=== PATIENT | female | born 1955 | race Caucasian/White ===

== ENCOUNTER 2017-05-11 16:32 | Emergency (ER) | payer OTHER ==
[~2017-05-11] VITALS: Ht 157.5 cm; Wt 41.5 kg
[~2017-05-11 16:32] MED LIST: AMBI10TA PO; LOMO PO; METH750T2 PO; PRED20 PO; TRAM50 PO; XANA1TAB6 PO; ZITH250T PO
[2017-05-11 16:34] VITALS: BP 103/58; PULSE 109; RESP 20; TEMP 98.8; O2SAT 88
--- NOTE | 2017-05-11 17:13 | PD ---
Physical Exam Date Seen by Provider: May 11, 2017 Time Seen by Provider: 17:11 Narrative 61-year-old white female presents to emergency department requesting evaluation of possible pneumonia. She states that she has had pneumonia several times and is normally treated at [facility]. She states that she's been sick now for the last 2 days. This has consisted of cough, congestion and colored sputum. Vital signs reviewed. Pt waiting for bed placement. Data Data Last Documented VS Vital Signs Date Time Temp Pulse Resp B/P (MAP) Pulse Ox O2 Delivery O2 Flow Rate FiO2 05/11/17 16:34 98.8 109 20 103/58 (73) 88 Room Air [facility] Medical Record Reviewed: No Supervised Visit with NITISH: Zafar Nieto May 11, 2017 17:13
== END 2017-05-11 18:20 | disposition left against medical advice (07) ==
LOC: NED 16:32
DX: R05 Cough (principal)
CPT/HCPCS: 99281

== ENCOUNTER 2018-05-27 10:21 | Inpatient (IN) ==
[2018-05-27] MEDS ORDERED: MethylPREDNISolone Sod Succinate Inj 125 MG/2 ML Vial IV.PUSH ONE (10:57)
--- NOTE | 2018-05-27 11:47 | XR ---
EXAM DATE: 05/27/2018 11:44 AM EST AGE/SEX: 62 years / Female INDICATIONS: Weakness and shortness of breath. CLINICAL DATA: This is the patient's initial encounter. Patient reports that signs and symptoms have been present for 1 day and indicates a pain score of Nonresponsive. MEDICAL/SURGICAL HISTORY: Chronic obstructive pulmonary disease. Emphysema. None. COMPARISON: [facility], CHEST SINGLE AP, 09/14/2015. . FINDINGS: The cardiac and mediastinal contours are within normal limits. There are COPD changes. No acute abnor mality is identified. The study is stable compared to previous dated 09/14/2015. The visualized bony structures are grossly intact. CONCLUSION: Chronic appearing interstitial changes and hyperinflation suggesting COPD. Electronically signed by: John Taylor MD 05/27/2018 11:45 AM EST
[2018-05-27 11:53] LABS: Baso % (Auto) 0.7 % (0.0-2.0); Eos % (Auto) 0.5 % (0.0-4.0); Hematocrit 48.4 % (35.0-46.0); Hemoglobin 15.8 gm/dL (11.6-15.3); Lymph # (Auto) 1.6 th/mm3 (1.0-4.8); Lymph % (Auto) 26.7 % (9.0-44.0); Mean Corpuscular HGB Conc 32.5 % (32.0-36.0); Mean Corpuscular Volume 92.2 fL (80.0-100.0); Mean Platelet Volume 8.6 fL (7.0-11.0); Mono # (Auto) 0.6 th/mm3 (0.0-0.9); Neut # (Auto) 3.8 th/mm3 (1.8-7.7); Neut % (Auto) 62.1 % (16.0-70.0); Platelet Count 161 th/mm3 (150-450); Red Blood Count 5.25 mil/mm3 (4.00-5.30); Red Cell Distribution Width 14.6 % (11.6-17.2); White Blood Count 6.1 th/mm3 (4.0-11.0)
[2018-05-27 12:09] LABS: ABG Base Excess 12.6 mmol/L (-2-2); ABG PCO2 101 mmHg (38-42); ABG PO2 288 mmHg (61-120)
[2018-05-27] MEDS ORDERED: Ketorolac Inj 30 MG/ML (IVP) Vial IV.PUSH ONE (12:14)
[2018-05-27 12:15] LABS: Alanine Aminotransferase 13 U/L (10-53); Albumin 3.4 g/dL (3.4-5.0); Anion Gap 4 meq/L (5-15); Aspartate Aminotransferase 17 U/L (15-37); Blood Urea Nitrogen 6 mg/dL (7-18); Calcium 8.3 mg/dL (8.5-10.1); Carbon Dioxide 39.3 meq/L (21.0-32.0); Chloride 97 meq/L (98-107); Glomerular Filtration Rate Greater Than 89 mL/min (>89); Glucose,Random 109 mg/dL (74-106); Magnesium 1.8 mg/dL (1.5-2.5); Potassium 3.5 meq/L (3.5-5.1); Sodium 140 meq/L (136-145)
--- NOTE | 2018-05-27 12:17 | ED ---
HPI General Chief Complaint: Shortness of Breath/Dyspnea Stated Complaint: GEN WEAKNESS Time Seen by Provider: 05/27/18 10:57 Source: patient and family Mode of arrival: wheelchair Limitations: other (clinical condition) History of Present Illness The patient is a 62-year-old female daily smoker with severe COPD that supposed to be on home O2 at 2 L 24 7 however is noncompliant was brought in respiratory distress by family. MD Complaint: Reports shortness of breath, cough and anxiety Onset (ago): day(s) (3) Context: Denies recent illness Severity: severe Relieving factors: oxygen Exacerbating factors: exertion Known history of: Reports COPD Associated symptoms: Reports cough, wheezing, sputum production and palpitations ; Denies fever, hemoptysis, diaphoresis, nausea/vomiting, syncope and chest congestion Treatment prior to arrival: Reports none Related Data Home oxygen amount: 2 liters (supposed to be but is not compliant) Home Medications Medication Instructions Recorded Confirmed albuterol sulfate 2.5 mg INHALATION Q4H PRN 05/27/18 05/27/18 albuterol sulfate [ProAir HFA] 1 puff INHALATION Q4-6H PRN 05/27/18 05/27/18 alprazolam 1 mg PO BID 05/27/18 05/27/18 fluticasone [Flovent HFA] 1 inh INHALATION Q12H 05/27/18 05/27/18 tramadol 50 mg PO Q4-6H PRN 05/27/18 05/27/18 zolpidem 5 mg PO HS 05/27/18 05/27/18 Allergies Allergy/AdvReac Type Severity Reaction Status Date / Time meperidine Allergy Severe Nausea/Vomi Verified 05/27/18 11:20 ting acetaminophen Allergy Intermediate Nausea/Vomi Verified 05/27/18 11:20 ting propoxyphene Allergy Intermediate Nausea/Vomi Verified 05/27/18 11:20 ting Review of Systems ROS: all other systems reviewed are negative [facility] Medical History Medical History Anxiety (Acute) COPD (chronic obstructive pulmonary disease) (Acute) Social History Social History Substance History: No History of Abuse Second Hand Smoke Exposure: Yes Smoking Status: Current every day smoker Tobacco Type: Cigarettes How Often Do You Have a Drink Containing Alcohol: Never Recent Travel in [facility] within the Last 8 Weeks: No Recent Out of Country Travel within the Last 8 Weeks: No Immunization History Tetanus Immunization: Unsure Exam Narrative Exam Narrative: GENERAL: Alert and oriented in respiratory distress. Cachectic SKIN: Focused skin assessment warm/dry. HEAD: Atraumatic. Normocephalic. EYES: Pupils equal and round. No scleral icterus. No injection or drainage. ENT: No nasal bleeding or discharge. Mucous membranes pink and moist. NECK: Trachea midline. No JVD. CARDIOVASCULAR: Tachycardia with regular rhythm. No murmur appreciated. RESPIRATORY: use of accessory muscles. bilateral inspiratory expiratory wheezes. Tachypnea. Diminished sounds bilateral lower base GASTROINTESTINAL: Abdomen soft, non-tender, nondistended. Hepatic and splenic margins not palpable. MUSCULOSKELETAL: No obvious deformities. No clubbing. No cyanosis. No edema. NEUROLOGICAL: Awake and alert. No obvious cranial nerve deficits. Motor grossly within normal limits. Normal speech. PSYCHIATRIC: Appropriate mood and affect; insight and judgment normal. Procedures Intubation Time Out Performed: Yes Sedative: etomidate Mg Given: 20 Paralytic: succinylcholine Mg Given: 100 Laryngoscope: fiber optic video scope ET Tube Size: 8 ET Tube Uncuffed: Yes Tube Secured Depth (cm): 22 Tube Secured Location: lips Tube Placement Confirmation: visualized tube passing through cords, equal breath sounds bilaterally and confirmation by capnometry Patient Tolerated Procedure: well Intubation Complications: none Course Reevaluation(s) Reevaluation #1: Patient was placed on BiPAP O2 saturation has improved and states that she feels a little better. Respiratory effort has decreased and she received a nebulizer treatment through the BiPAP Time: 11:30 Reevaluation #2: BG's revealed respiratory acidosis with a PCO2 of 101 and a pH of 7.224 and PO2 of 288. We will place the patient on BiPAP to assist with ventilation. No signs of pneumonia on imaging. Patient hypercapnia did not improve on BiPAP she actually started becoming more altered and was Time: 12:17 Reevaluation #3: No major improvement on repeat ABGs PCO2 is 95 after she was on BiPAP for over an hour patient is becoming more lethargic decision was made to intubate due to respiratory acidosis and hypercapnia and beginning of altered mental status. Time: 13:59 Initial Documented Vital Signs Temperature 98.3 F 05/27/18 10:46 Pulse Rate 100 H 05/27/18 10:46 Respiratory Rate 42 H 05/27/18 10:46 Blood Pressure 135/77 05/27/18 10:46 Pulse Oximetry 50 L 05/27/18 10:46 Last Documented Vital Signs Temperature 98.3 F 05/27/18 10:46 Pulse Rate 73 05/27/18 16:56 Respiratory Rate 18 05/27/18 16:56 Blood Pressure 99/65 L 05/27/18 16:23 Pulse Oximetry 99 05/27/18 16:52 Critical Care Time Critical Care Time: Yes Total Critical Care Time: 30 Attestation: Aggregate critical care time was 30 minutes. Time to perform other separately billable procedures was not included in the critical care time. My time did not include minutes spent treating any other patients simultaneously or on activities that did not directly contribute to the patient's treatment. The services I provided to this patient were to treat and/or prevent clinically significant deterioration that could result in: I provided critical care services requiring my management, as noted below: Chart data review, documentation time, medication orders and management, vital sign assessments/reviewing monitor data, ordering and reviewing lab tests, ordering and interpreting/reviewing x-rays and diagnostic studies, care of the patient and discussion of the patient with the admitting physicians. Medical Decision Making MDM Narrative Medical decision making narrative: Patient in respiratory failure with respiratory acidosis and hypercapnia. Did not improve on BiPAP was intubated and admitted to the ICU. Serologies were negative for influenza there is no signs of pneumonia on chest x-ray and EKG troponin and WBCs were unremarkable. Medical Screen Exam Complete: Yes Emergency Medical Condition: Yes Lab Data Result diagrams: 05/27/18 11:04 05/27/18 11:04 Lab Results 05/27/18 05/27/18 05/27/18 Range/Units 11:04 11:04 11:58 WBC 6.1 (4.0-11.0) th/mm3 RBC 5.25 (4.00-5.30) mil/mm3 Hgb 15.8 H (11.6-15.3) gm/dL Hct 48.4 H (35.0-46.0) % MCV 92.2 (80.0-100.0) fL MCH 30.0 (27.0-34.0) pg MCHC 32.5 (32.0-36.0) % RDW 14.6 (11.6-17.2) % Plt Count 161 (150-450) th/mm3 MPV 8.6 (7.0-11.0) fL Neut % (Auto) 62.1 (16.0-70.0) % Lymph % (Auto) 26.7 (9.0-44.0) % [place] % (Auto) 10.0 H (0.0-8.0) % Eos % (Auto) 0.5 (0.0-4.0) % Baso % (Auto) 0.7 (0.0-2.0) % Neut # (Auto) 3.8 (1.8-7.7) th/mm3 Lymph # (Auto) 1.6 (1.0-4.8) th/mm3 [place] # (Auto) 0.6 (0.0-0.9) th/mm3 Eos # (Auto) 0.0 (0.0-0.4) th/mm3 Baso # (Auto) 0.0 (0.0-0.2) th/mm3 WBC Differential . Differential Comment Auto diff final Puncture Site Left radial Patient Temperature 98.6 O2 Saturation 97 (90-100) % ABG pH 7.22 L* (7.380-7.420) ABG pCO2 101 H* (38-42) mmHg ABG pO2 288 H (61-120) mmHg ABG HCO3 40 H (22-26) mmol/L ABG O2 Content 22.5 H (12.0-20.0) Vol % ABG Base Excess 12.6 H (-2-2) mmol/L ABG Methemoglobin 0.7 (0-2) % Gus Test Present Hemoglobin 16.0 (12.0-16.0) G/DL Carboxyhemoglobin 1.7 (0-4) % O2 Delivery Device Non-rebreathing mask Liter Flow 15.00 L/M Vent Setting Inspired O2 100 % Critical Value Yes Sodium 140 (136-145) meq/L Potassium 3.5 (3.5-5.1) meq/L Chloride 97 L (98-107) meq/L Carbon Dioxide 39.3 H (21.0-32.0) meq/L Anion Gap 4 L (5-15) meq/L BUN 6 L (7-18) mg/dL Creatinine 0.59 (0.50-1.00) mg/dL Estimated GFR Greater than 89 (>89) mL/min Random Glucose 109 H (74-106) mg/dL Calcium 8.3 L (8.5-10.1) mg/dL Magnesium 1.8 (1.5-2.5) mg/dL Total Bilirubin 0.2 (0.2-1.0) mg/dL AST 17 (15-37) U/L ALT 13 (10-53) U/L Alkaline Phosphatase 87 (45-117) U/L Total Creatine Kinase 51 (26-192) U/L Troponin I Less than 0.02 L (0.02-0.05) ng/mL Total Protein 7.1 (6.4-8.2) g/dL Albumin 3.4 (3.4-5.0) g/dL 05/27/18 Range/Units 13:43 WBC (4.0-11.0) th/mm3 RBC (4.00-5.30) mil/mm3 Hgb (11.6-15.3) gm/dL Hct (35.0-46.0) % MCV (80.0-100.0) fL MCH (27.0-34.0) pg MCHC (32.0-36.0) % RDW (11.6-17.2) % Plt Count (150-450) th/mm3 MPV (7.0-11.0) fL Neut % (Auto) (16.0-70.0) % Lymph % (Auto) (9.0-44.0) % [place] % (Auto) (0.0-8.0) % Eos % (Auto) (0.0-4.0) % Baso % (Auto) (0.0-2.0) % Neut # (Auto) (1.8-7.7) th/mm3 Lymph # (Auto) (1.0-4.8) th/mm3 [place] # (Auto) (0.0-0.9) th/mm3 Eos # (Auto) (0.0-0.4) th/mm3 Baso # (Auto) (0.0-0.2) th/mm3 WBC Differential Differential Comment Puncture Site Left radial Patient Temperature 98.6 O2 Saturation 90 (90-100) % ABG pH 7.25 L* (7.380-7.420) ABG pCO2 95 H* (38-42) mmHg ABG pO2 76 (61-120) mmHg ABG HCO3 40 H (22-26) mmol/L ABG O2 Content 20.0 (12.0-20.0) Vol % ABG Base Excess 12.4 H (-2-2) mmol/L ABG Methemoglobin 0.5 (0-2) % Gus Test Present Hemoglobin 15.8 (12.0-16.0) G/DL Carboxyhemoglobin 1.7 (0-4) % O2 Delivery Device Bipap Liter Flow L/M Vent Setting See comments Inspired O2 40 % Critical Value Yes Sodium (136-145) meq/L Potassium (3.5-5.1) meq/L Chloride (98-107) meq/L Carbon Dioxide (21.0-32.0) meq/L Anion Gap (5-15) meq/L BUN (7-18) mg/dL Creatinine (0.50-1.00) mg/dL Estimated GFR (>89) mL/min Random Glucose (74-106) mg/dL Calcium (8.5-10.1) mg/dL Magnesium (1.5-2.5) mg/dL Total Bilirubin (0.2-1.0) mg/dL AST (15-37) U/L ALT (10-53) U/L Alkaline Phosphatase (45-117) U/L Total Creatine Kinase (26-192) U/L Troponin I (0.02-0.05) ng/mL Total Protein (6.4-8.2) g/dL Albumin (3.4-5.0) g/dL Imaging Data Radiologist's impression: Chest X-Ray 05/27/18 10:58 CONCLUSION: Chronic appearing interstitial changes and hyperinflation suggesting COPD. Chest X-Ray 05/27/18 14:11 CONCLUSION: COPD changes. ET tube in good position. Discharge Plan Discharge Disposition Patient Disposition: 30 Still Patient Discharge Condition Condition: Critical Discharge Details Diagnosis: Respiratory failure with hypercapnia, Respiratory failure requiring intubation Physicians Team ED Provider: Rene Okeefe Primary Care Provider: UNKNOWN, Attending Provider: Tameka Camarena Discharge Interventions Interventions: ED Discharge Assessment Last Done: 05/27/18 17:00 Vital Signs Last Done: 05/27/18 15:00 Status ED Status: Left Department Discharge Information Discharge Date/Time: 05/27/18 17:01
[2018-05-27 12:19] LABS: Alkaline Phosphatase 87 U/L (45-117); Total Protein 7.1 g/dL (6.4-8.2)
[2018-05-27 12:21] LABS: Creatine Kinase 51 U/L (26-192)
[2018-05-27] MEDS ORDERED: Naloxone Inj 0.4 MG/ML Vial IV.PUSH ONE (13:39)
[2018-05-27] MEDS ORDERED: Naloxone Inj 0.4 MG/ML Vial ONE (13:40)
[2018-05-27 13:52] LABS: ABG Base Excess 12.4 mmol/L (-2-2); ABG PCO2 95 mmHg (38-42); ABG PO2 76 mmHg (61-120)
[2018-05-27] MEDS ORDERED: Succinylcholine Inj 200 MG/10 ML Vial IV.PUSH ONE (13:58)
[2018-05-27] MEDS ORDERED: Etomidate Inj 20 MG/10 ML Ampul IV.PUSH ONE (13:58)
--- NOTE | 2018-05-27 13:59 | ED ---
HPI General Chief Complaint: Shortness of Breath/Dyspnea Stated Complaint: GEN WEAKNESS Time Seen by Provider: 05/27/18 10:57 Related Data Allergies Allergy/AdvReac Type Severity Reaction Status Date / Time meperidine Allergy Severe Nausea/Vomi Verified 05/27/18 11:20 ting acetaminophen Allergy Intermediate Nausea/Vomi Verified 05/27/18 11:20 ting propoxyphene Allergy Intermediate Nausea/Vomi Verified 05/27/18 11:20 ting PMFSH Medical History Medical History Anxiety (Acute) COPD (chronic obstructive pulmonary disease) (Acute) Social History Social History Substance History: No History of Abuse Second Hand Smoke Exposure: Yes Smoking Status: Current every day smoker Tobacco Type: Cigarettes How Often Do You Have a Drink Containing Alcohol: Never Recent Travel in [facility] within the Last 8 Weeks: No Recent Out of Country Travel within the Last 8 Weeks: No Immunization History Tetanus Immunization: Unsure Course Reevaluation(s) Reevaluation #3: She does not seem to be improving on repeat ABGs. Her PCO2 is 95 after she was on BiPAP for about an hour's becoming more lethargic decision was made with daughter at bedside to intubate the patient. Her daughter is at bedside aware of condition. Time: 13:59 Initial Documented Vital Signs Temperature 98.3 F 05/27/18 10:46 Pulse Rate 100 H 05/27/18 10:46 Respiratory Rate 42 H 05/27/18 10:46 Blood Pressure 135/77 05/27/18 10:46 Pulse Oximetry 50 L 05/27/18 10:46 Last Documented Vital Signs Temperature 98.3 F 05/27/18 10:46 Pulse Rate 88 05/27/18 13:00 Respiratory Rate 16 05/27/18 13:00 Blood Pressure 111/69 05/27/18 13:00 Pulse Oximetry 96 05/27/18 13:00 Medical Decision Making Lab Data Result diagrams: 05/27/18 11:04 05/27/18 11:04 Lab Results 05/27/18 05/27/18 05/27/18 Range/Units 11:04 11:04 11:58 WBC 6.1 (4.0-11.0) th/mm3 RBC 5.25 (4.00-5.30) mil/mm3 Hgb 15.8 H (11.6-15.3) gm/dL Hct 48.4 H (35.0-46.0) % MCV 92.2 (80.0-100.0) fL MCH 30.0 (27.0-34.0) pg MCHC 32.5 (32.0-36.0) % RDW 14.6 (11.6-17.2) % Plt Count 161 (150-450) th/mm3 MPV 8.6 (7.0-11.0) fL Neut % (Auto) 62.1 (16.0-70.0) % Lymph % (Auto) 26.7 (9.0-44.0) % [place] % (Auto) 10.0 H (0.0-8.0) % Eos % (Auto) 0.5 (0.0-4.0) % Baso % (Auto) 0.7 (0.0-2.0) % Neut # (Auto) 3.8 (1.8-7.7) th/mm3 Lymph # (Auto) 1.6 (1.0-4.8) th/mm3 [place] # (Auto) 0.6 (0.0-0.9) th/mm3 Eos # (Auto) 0.0 (0.0-0.4) th/mm3 Baso # (Auto) 0.0 (0.0-0.2) th/mm3 WBC Differential . Differential Comment Auto diff final Puncture Site Left radial Patient Temperature 98.6 O2 Saturation 97 (90-100) % ABG pH 7.22 L* (7.380-7.420) ABG pCO2 101 H* (38-42) mmHg ABG pO2 288 H (61-120) mmHg ABG HCO3 40 H (22-26) mmol/L ABG O2 Content 22.5 H (12.0-20.0) Vol % ABG Base Excess 12.6 H (-2-2) mmol/L ABG Methemoglobin 0.7 (0-2) % Gus Test Present Hemoglobin 16.0 (12.0-16.0) G/DL Carboxyhemoglobin 1.7 (0-4) % O2 Delivery Device Non-rebreathing mask Liter Flow 15.00 L/M Vent Setting Inspired O2 100 % Critical Value Yes Sodium 140 (136-145) meq/L Potassium 3.5 (3.5-5.1) meq/L Chloride 97 L (98-107) meq/L Carbon Dioxide 39.3 H (21.0-32.0) meq/L Anion Gap 4 L (5-15) meq/L BUN 6 L (7-18) mg/dL Creatinine 0.59 (0.50-1.00) mg/dL Estimated GFR Greater than 89 (>89) mL/min Random Glucose 109 H (74-106) mg/dL Calcium 8.3 L (8.5-10.1) mg/dL Magnesium 1.8 (1.5-2.5) mg/dL Total Bilirubin 0.2 (0.2-1.0) mg/dL AST 17 (15-37) U/L ALT 13 (10-53) U/L Alkaline Phosphatase 87 (45-117) U/L Total Creatine Kinase 51 (26-192) U/L Troponin I Less than 0.02 L (0.02-0.05) ng/mL Total Protein 7.1 (6.4-8.2) g/dL Albumin 3.4 (3.4-5.0) g/dL 05/27/18 Range/Units 13:43 WBC (4.0-11.0) th/mm3 RBC (4.00-5.30) mil/mm3 Hgb (11.6-15.3) gm/dL Hct (35.0-46.0) % MCV (80.0-100.0) fL MCH (27.0-34.0) pg MCHC (32.0-36.0) % RDW (11.6-17.2) % Plt Count (150-450) th/mm3 MPV (7.0-11.0) fL Neut % (Auto) (16.0-70.0) % Lymph % (Auto) (9.0-44.0) % [place] % (Auto) (0.0-8.0) % Eos % (Auto) (0.0-4.0) % Baso % (Auto) (0.0-2.0) % Neut # (Auto) (1.8-7.7) th/mm3 Lymph # (Auto) (1.0-4.8) th/mm3 [place] # (Auto) (0.0-0.9) th/mm3 Eos # (Auto) (0.0-0.4) th/mm3 Baso # (Auto) (0.0-0.2) th/mm3 WBC Differential Differential Comment Puncture Site Left radial Patient Temperature 98.6 O2 Saturation 90 (90-100) % ABG pH 7.25 L* (7.380-7.420) ABG pCO2 95 H* (38-42) mmHg ABG pO2 76 (61-120) mmHg ABG HCO3 40 H (22-26) mmol/L ABG O2 Content 20.0 (12.0-20.0) Vol % ABG Base Excess 12.4 H (-2-2) mmol/L ABG Methemoglobin 0.5 (0-2) % Gus Test Present Hemoglobin 15.8 (12.0-16.0) G/DL Carboxyhemoglobin 1.7 (0-4) % O2 Delivery Device Bipap Liter Flow L/M Vent Setting See comments Inspired O2 40 % Critical Value Yes Sodium (136-145) meq/L Potassium (3.5-5.1) meq/L Chloride (98-107) meq/L Carbon Dioxide (21.0-32.0) meq/L Anion Gap (5-15) meq/L BUN (7-18) mg/dL Creatinine (0.50-1.00) mg/dL Estimated GFR (>89) mL/min Random Glucose (74-106) mg/dL Calcium (8.5-10.1) mg/dL Magnesium (1.5-2.5) mg/dL Total Bilirubin (0.2-1.0) mg/dL AST (15-37) U/L ALT (10-53) U/L Alkaline Phosphatase (45-117) U/L Total Creatine Kinase (26-192) U/L Troponin I (0.02-0.05) ng/mL Total Protein (6.4-8.2) g/dL Albumin (3.4-5.0) g/dL Imaging Data Radiologist's impression: Chest X-Ray 05/27/18 10:58 CONCLUSION: Chronic appearing interstitial changes and hyperinflation suggesting COPD. Discharge Plan Physicians Team ED Provider: Rene Okeefe Primary Care Provider: UNKNOWN, Status ED Status: Pending Admission
[2018-05-27] MEDS ORDERED: Sod Chloride 0.9% Inj 1,000 ML IV.SIG ONE (14:12)
[2018-05-27] MEDS ORDERED: Magnesium Oxide 400 MG Tablet PO PRN (14:17)
[2018-05-27] MEDS ORDERED: Magnesium Sulfate Inj 4 GM in Sodium Chlor 0.9% Inj 92 ML IV.SIG PRN (14:17)
[2018-05-27] MEDS ORDERED: Potassium Phosphate Inj 30 MMOL in Sodium Chlor 0.9% Inj 250 ML IV.SIG PRN (14:17)
[2018-05-27] MEDS ORDERED: Sodium Phosphate Inj 30 MMOL in Sodium Chlor 0.9% Inj 250 ML IV.SIG PRN (14:17)
[2018-05-27] MEDS ORDERED: Potassium Chlor 20 mEq Premix 20 MEQ/100 ML PIGGYBACK IV.SIG PRN ×2 (14:17)
[2018-05-27] MEDS ORDERED: Bisacodyl 10 MG Supp RECTAL PRN (14:17)
[2018-05-27] MEDS ORDERED: Potassium Chloride 25 MEQ Effervescent Tablet PO PRN (14:17)
[2018-05-27] MEDS ORDERED: Magnesium Sulfate Inj 2 GM in Sodium Chlor 0.9% Inj 96 ML IV.SIG PRN (14:17)
[2018-05-27] MEDS ORDERED: Potassium Chlor 40 mEq Premix 40 MEQ/100 ML PIGGYBACK IV.SIG PRN ×2 (14:17)
[2018-05-27] MEDS ORDERED: Potassium Phosphate 500 MG Soluble Tablet PO PRN ×2 (14:17)
[2018-05-27] MEDS: Propofol 1000 mg/100 ml Inj 1,000 MG/100 ML BOTTLE IV.CONT PRN ×2 (14:31→20:24)
--- NOTE | 2018-05-27 14:39 | XR ---
EXAM DATE: 05/27/2018 2:36 PM EST AGE/SEX: 62 years / Female INDICATIONS: Post ET tube placement. CLINICAL DATA: This is the patient's subsequent encounter. Patient reports that signs and symptoms h ave been present for 1 day and indicates a pain score of Nonresponsive. MEDICAL/SURGICAL HISTORY: . Chronic obstructive pulmonary disease. Emphysema. None. COMPARISON: [facility] 1[place] SINGLE [place], 05/27/2018. . FINDINGS: The endotracheal tubes in good position. The heart is normal in size. The mediastinal contours are within normal limits. The pulmonary parenchyma demonstrates advanced COPD changes. The visualized bony structures are grossly intact. CONCLUSION: COPD changes. ET tube in good position. Electronically signed by: John Taylor MD 05/27/2018 2:37 PM EST
[2018-05-27] MEDS: Sod Chloride 0.9% Inj 1,000 ML IV.CONT SCH (15:32)
[2018-05-27] MEDS: Heparin - SQ 10,000 UNITS/ML Vial SQ SCH (15:39)
[2018-05-27] MEDS ORDERED: Magnesium Sulfate Inj 2 GM in Sodium Chlor 0.9% Inj 96 ML IV.SIG ONE (16:00)
[2018-05-27] MEDS: fentaNYL 10 mcg/mL Premix Drip 2,500 MCG/250 ML BAG IV.SIG PRN (17:23)
[2018-05-27] MEDS: Oral Hygiene Kit OROPHARYNG SCH (17:24)
[2018-05-27 17:38] LABS: ABG Base Excess 6.6 mmol/L (-2-2); ABG PCO2 41 mmHg (38-42); ABG PO2 105 mmHG (61-120)
--- NOTE | 2018-05-27 18:10 | P.HPCC ---
History of Present Illness Service: [facility] [place] Primary Care Physician: UNKNOWN Chief Complaint: Shortness of breath, somnolence History of Present Illness: 62yF presenting to the ED today with shortness of breath and cough. The patient' s daughter states that the patient has a history of severe COPD, is supposed to be using 2L O2 NC around the clock but doesn't, and has been complained of feeling "winded" and coughing for the past week. The patient does not like coming to hospitals or seeing doctors but her daughter convinced her to come this morning when she was complaining of feeling "sleepy". The patient was noted to be difficult to arouse in the ED, was given Narcan x 1 dose and placed on bipap. Her initial ABG showed a pCO2 of 101 which only improved to 95 after an hour and a half on bipap. The patient was intubated by the ED physician prior to my evaluation, and I obtained details of the HPI from her daughter at the bedside. COPD on nebs at home, daughter does not think that the patient takes chronic or frequent steroids but says that she has required ICU admission/ intubation several times in the past, still smokes, frequently non-compliant with home O2. Inpatient Certification: I certify that the inpatient services were ordered in accordance with Medicare regulations governing the order. This includes certification that hospital inpatient services are reasonable and necessary and in the case of services not specified as inpatient-only under 42 CFR 419.22(n), that they are appropriately provided as inpatient services in accordance to with the 2-midnight benchmark under 43 CFR 412.3(e) Estimated Total Length of Stay (Days): 3 Plans for Post Hospital Care: Home Review of Systems unobtainable due to endotracheal tube PMFSH - History History Provided By: Patient - Medical History Medical History: Medical History (Last Reviewed 05/27/18 @ 18:16 by Tameka Camarena DO) Anxiety COPD (chronic obstructive pulmonary disease) - Tobacco History Second Hand Smoke Exposure: Yes Tobacco Use In Past 30 Days: Yes Smoking Status: Current every day smoker Tobacco Type: Cigarettes - Alcohol History How Often Do You Have a Drink Containing Alcohol: Never - Substance Use History Substance History: No History of Abuse (Patient's daughter says the patient "sometimes takes a pill or two from the jules up the street") - Travel History Recent Travel in the [facility] Within the Last 8 Weeks: No Recent Travel Out of the Country Within the Last 8 Weeks: No - Immunization History Tetanus Immunization: Unsure Medications and Allergies Active Medications: Active Medications Al Hydroxide/Mg Hydroxide (Milk Of Antoinette Liq) 30 ml PO Q12H PRN PRN Reason: Mild Constipation Albuterol (Duoneb Neb (Adriane)) 1 ampul NEB Q4HR NEB [facility] Last Admin: 05/27/18 16:56 Dose: 1 ampul Albuterol (Duoneb Neb (Prn)) 1 ampul NEB Q2HR NEB PRN PRN Reason: WHEEZING Bisacodyl (Dulcolax Supp) 10 mg RECTAL DAILY PRN PRN Reason: SEVERE CONSITIPATION Chlorhexidine Gluconate (Peridex 0.12% Oral Kit) 15 ml OROPHARYNG BID@0800, 2000 [facility] Chlorhexidine Gluconate (Chlorhexidine 2% Cloth) 3 pack TOPICAL DAILY@0400 ADRIANE Stop: 06/02/18 03:59 Chlorhexidine Gluconate (Chlorhexidine 2% Cloth) 3 pack TOPICAL DAILY@0400 PRN PRN Reason: Extra cloth needed Stop: 06/02/18 03:59 Famotidine (Pepcid) 20 mg PO BID [facility] Famotidine (Pepcid Pf Inj) 20 mg IV.PUSH Q12HR [facility] Heparin Sodium (Porcine) (Heparin Inj) 5,000 units SQ Q8H [facility] Last Admin: 05/27/18 15:39 Dose: 5,000 units Propofol (Diprivan 1000 Mg/100 Ml Inj) 1,000 mg in 100 mls @ 1.334 mls/hr IV.CONT TITRATE PRN; Protocol PRN Reason: Per Protocol Last Titration: 05/27/18 17:49 Dose: 25 mcg/kg/min, 6.67 mls/hr Fentanyl (Fentanyl 10 Mcg/Ml Premix Drip) 2,500 mcg in 250 mls @ 5 mls/hr IV.SIG TITRATE PRN; Protocol PRN Reason: Per Protocol Last Titration: 05/27/18 17:47 Dose: 100 mcg/hr, 10 mls/hr Magnesium Sulfate 4 gm/ Sodium (Chloride) 100 mls @ 50 mls/hr IV.SIG UNSCH PRN PRN Reason: For Magnesium 0.9 - 1.1 mg/dL Magnesium Sulfate 2 gm/ Sodium (Chloride) 100 mls @ 50 mls/hr IV.SIG UNSCH PRN PRN Reason: For Magnesium 1.2 - 1.6 mg/dL Sodium Chloride (Ns Inj) 1,000 mls @ 84 mls/hr IV.CONT .[id number] [facility] Last Admin: 05/27/18 15:32 Dose: 84 mls/hr Potassium Chloride (Kcl 20 Meq Premix Inj) 20 meq in 100 mls @ 50 mls/hr IV.SIG Q2H PRN PRN Reason: For Potassium 3.3 - 3.5 mEq/L Potassium Chloride (Kcl 40 Meq Premix Inj) 40 meq in 100 mls @ 25 mls/hr IV.SIG UNSCH PRN PRN Reason: For Potassium 3.3 - 3.5 mEq/L Potassium Chloride (Kcl 20 Meq Premix Inj) 20 meq in 100 mls @ 50 mls/hr IV.SIG Q2H PRN PRN Reason: For Potassium 2.8 - 3.2 mEq/L Sodium Phosphate 30 mmol/ (Sodium Chloride) 260 mls @ 42 mls/hr IV.SIG UNSCH PRN PRN Reason: For Phosphorus < 2.5 mg/dL Potassium Chloride (Kcl 40 Meq Premix Inj) 40 meq in 100 mls @ 25 mls/hr IV.SIG Q2H PRN PRN Reason: For Potassium 2.8 - 3.2 mEq/L Potassium Phosphate 30 mmol/ (Sodium Chloride) 260 mls @ 42 mls/hr IV.SIG UNSCH PRN PRN Reason: SEE LABEL COMMENTS Lactulose (Lactulose Liq) 30 ml PO DAILY PRN PRN Reason: SEVERE CONSITIPATION Magnesium Oxide (Mag-Ox) 800 mg PO UNSCH PRN PRN Reason: For Magnesium 1.2 - 1.6 mg/dL Miscellaneous Medication () 1 each OROPHARYNG 0000,0400,1200,1600 [facility] Last Admin: 05/27/18 17:24 Dose: 1 each Nicotine (Habitrol 21 Mg Patch.24 Hr) 1 patch T-DERMAL DAILY [facility] Last Admin: 05/27/18 15:38 Dose: 1 patch Ondansetron HCl (Zofran Inj) 4 mg IV.PUSH Q6H PRN PRN Reason: NAUSEA OR VOMITING Patch Removal (Remove Old Patch) 1 each T-DERMAL DAILY [facility] Potassium Bicarb/Potassium Chloride (K-Lyte Cl Eff) 50 meq PO UNSCH PRN PRN Reason: For Potassium 3.3 - 3.5 mEq/L Potassium Phosphate (K-Phos Original) 2,000 mg PO Q4H PRN PRN Reason: Phosphorus Less Than 2.5 mg/dL Potassium Phosphate (K-Phos Original) 2,000 mg PO UNSCH PRN PRN Reason: SEE LABEL COMMENTS Senna/Docusate Sodium (Irene-Colace) 1 tab PO BID [facility] Sennosides (Senokot) 17.2 mg PO Q12H PRN PRN Reason: Moderate Constipation Sodium Chloride (Ns Flush) 2 ml IV.FLUSH BID ADRIANE Sodium Chloride (Ns Flush) 2 ml IV.FLUSH PRN PRN PRN Reason: FLUSH AFTER USING IV ACCESS Allergies Allergy/AdvReac Type Severity Reaction Status Date / Time meperidine Allergy Severe Nausea/Vomi Verified 05/27/18 11:20 ting acetaminophen Allergy Intermediate Nausea/Vomi Verified 05/27/18 11:20 ting propoxyphene Allergy Intermediate Nausea/Vomi Verified 05/27/18 11:20 ting Home Medications Medication Instructions Recorded Confirmed Type albuterol sulfate 2.5 mg INHALATION Q4H PRN 05/27/18 05/27/18 History albuterol sulfate [ProAir HFA] 1 puff INHALATION Q4-6H PRN 05/27/18 05/27/18 History alprazolam 1 mg PO BID 05/27/18 05/27/18 History fluticasone [Flovent HFA] 1 inh INHALATION Q12H 05/27/18 05/27/18 History tramadol 50 mg PO Q4-6H PRN 05/27/18 05/27/18 History zolpidem 5 mg PO HS 05/27/18 05/27/18 History Results - Labs CBC & Chem 7: 05/27/18 11:04 05/27/18 11:04 Labs: Short CBC 05/27/18 Range/Units 11:04 WBC 6.1 (4.0-11.0) th/mm3 Hgb 15.8 H (11.6-15.3) gm/dL Hct 48.4 H (35.0-46.0) % Plt Count 161 (150-450) th/mm3 [facility] 05/27/18 11:04 Sodium 140 Potassium 3.5 Chloride 97 L Carbon Dioxide 39.3 H BUN 6 L Creatinine 0.59 Calcium 8.3 L Cardiac Enzymes 05/27/18 Range/Units 11:04 Total Creatine Kinase 51 (26-192) U/L Troponin I Less than 0.02 L (0.02-0.05) ng/mL Liver Function 05/27/18 Range/Units 11:04 Total Bilirubin 0.2 (0.2-1.0) mg/dL AST 17 (15-37) U/L ALT 13 (10-53) U/L Alkaline Phosphatase 87 (45-117) U/L Albumin 3.4 (3.4-5.0) g/dL - Imaging Impressions Chest X-Ray 05/27/18 10:58 CONCLUSION: Chronic appearing interstitial changes and hyperinflation suggesting COPD. Chest X-Ray 05/27/18 14:11 CONCLUSION: COPD changes. ET tube in good position. Exam Vital signs: Vital Signs 05/27/18 10:46 05/27/18 10:55 05/27/18 11:12 Temperature 98.3 F Pulse Rate 100 H 101 H 93 H Respiratory Rate 42 H 26 H 17 Blood Pressure 135/77 Pulse Oximetry 50 L 98 100 05/27/18 11:49 05/27/18 12:16 05/27/18 13:00 Temperature Pulse Rate 101 H 88 Respiratory Rate 26 H 16 Blood Pressure 124/70 111/69 Pulse Oximetry 98 100 96 05/27/18 15:00 05/27/18 15:10 05/27/18 15:15 Temperature Pulse Rate 86 72 72 Respiratory Rate 21 17 Blood Pressure 120/74 95/61 L 96/61 L Pulse Oximetry 98 98 99 05/27/18 15:20 05/27/18 15:22 05/27/18 15:25 Temperature Pulse Rate 70 68 Respiratory Rate 18 18 18 Blood Pressure 98/66 L 101/64 Pulse Oximetry 99 98 99 05/27/18 15:30 05/27/18 15:40 05/27/18 15:54 Temperature Pulse Rate 66 68 88 Respiratory Rate 18 18 16 Blood Pressure 106/66 104/68 120/80 Pulse Oximetry 99 99 97 05/27/18 15:56 05/27/18 16:23 05/27/18 16:52 Temperature Pulse Rate 72 66 Respiratory Rate 17 18 18 Blood Pressure 108/69 99/65 L Pulse Oximetry 98 99 99 05/27/18 16:56 05/27/18 17:39 Temperature 99.0 F Pulse Rate 73 79 Respiratory Rate 18 18 Blood Pressure Pulse Oximetry 100 Intake & Output 05/26/18 05/27/18 05/27/18 18:59 06:59 18:59 Intake Total 1000 / 1000 Balance 1000 / 1000 Weight 44.452 kg Intake: IV 1000 / 1000 NS Inj 1,000 ML @ Wide Open IV. 1000 / 1000 SIG BOLUS ONE Rx#:[id number] Narrative: GEN: Frail appearing female, intubated and sedated HEENT: NCAT, mucosa moist and pink NECK: Trachea midline, no JVD CARDIO: Tachy, regular RESP: Full-field expiratory wheeze bilaterally, no vent dyssynchrony ABD/ GI: Soft, non-distended, non-tender throughout EXT/MSK: No peripheral edema SKIN: Warm, well-perfused NEURO: GCS 5T (E1VTM3), RASS -2 PSYCH: Unable to assess Caprini VTE Risk Assessment Caprini VTE Risk Assessment: Moderate/High Risk (score >= 2) Caprini Risk Assessment Model: Point Value = 1 Point Value = 2 Point Value = 3 Point Value = 5 Age 41-60 Minor surgery BMI > 25 kg/m2 Swollen legs Varicose veins or History of unexplained or recurrent spontaneous Oral contraceptives or hormone replacement Sepsis (< 1 month) Serious lung disease, including pneumonia (< 1 month) Abnormal pulmonary function Acute myocardial infarction Congestive heart failure (< 1 month) History of inflammatory bowel disease Medical patient at bed rest Age 61-74 Arthroscopic surgery Major open surgery (> 45 min) Laparoscopic surgery (> 45 min) Malignancy Confined to bed (> 72 hours) Immobilizing plaster cast Central venous access Age >= 75 History of VTE Family history of VTE Factor V Leiden Prothrombin [id number] Lupus anticoagulant Anticardiolipin antibodies Elevated serum homocysteine Heparin-induced thrombocytopenia Other congenital or acquired thrombophilia Stroke (< 1 month) Elective arthroplasty Hip, pelvis, or leg fracture Acute spinal cord injury (< 1 month) Prophylaxis Regimen: Total Risk Factor Score Risk Level Prophylaxis Regimen 0-1 Low Early ambulation 2 Moderate Order ONE of the following: *Sequential Compression Device (SCD) *Heparin 5000 units SQ BID 3-4 Higher Order ONE of the following medications: *Heparin 5000 units SQ TID *Enoxaparin/Lovenox 40 mg SQ daily (WT < 150 kg, CrCl > 30 mL/min) *Enoxaparin/Lovenox 30 mg SQ daily (WT < 150 kg, CrCl > 10-29 mL/min) *Enoxaparin/Lovenox 30 mg SQ BID (WT < 150 kg, CrCl > 30 mL/min) AND/OR *Sequential Compression Device (SCD) 5 or more Highest Order ONE of the following medications: *Heparin 5000 units SQ TID (Preferred with Epidurals) *Enoxaparin/Lovenox 40 mg SQ daily (WT < 150 kg, CrCl > 30 mL/min) *Enoxaparin/Lovenox 30 mg SQ daily (WT < 150 kg, CrCl > 10-29 mL/min) *Enoxaparin/Lovenox 30 mg SQ BID (WT < 150 kg, CrCl > 30 mL/min) AND *Sequential Compression Device (SCD) Assessment and Plan - Assessment and Plan Plan: 62yF presenting with COPD exacerbation, CO2 narcosis, acute hypercapnic respiratory failure NEURO: -Fentanyl/ propofol for pain/ sedation, goal RASS 0 to -1 -Nicotine patch -Delirium precautions CARDIO: -No active issues RESP: -Scheduled and PRN nebs -Solumedrol 60mg q12h, given 125mg in ED -Patient given 2g MgSO4, will repeat dose if needed -ETT in appropriate position on CXR, no infiltrates noted -Post-intubation ABG showed hypocarbia, rate decreased from 18 to 14 -Wean tomorrow AM if patient is otherwise stable F/E/N: -NPO -Maintenance fluids -Electrolyte repletion protocol ID: -No active issues PROPHY: -PPI -SCDs, SQH Counseling/ Coordination of Care: This patient is critically ill with impairment of one or more vital organ systems with a high probability of imminent or life-threatening deterioration. High-complexity medical decision making was required to support vital organ function and/ or prevent deterioration in the patient's condition. Total critical care time spent is 50 minutes giving full attention to this patient. This includes examining the patient, gathering history from someone other than the patient (i.e. chart review), discussing the patient's care with other providers, managing the patient's blood pressure and ventilator settings, ordering and interpreting radiologic studies, ordering and interpreting laboratory values, managing the patient's sedation requirements, re-evaluation at frequent intervals, and documentation. Amount of time is separate from teaching, counseling the patient and/or family, and exclusive of procedures. Code Status: Full
[2018-05-27] MEDS: Chlorhexidine 0.12% Oral Kit 15 ML UDC OROPHARYNG SCH (20:21)
[2018-05-27] MEDS: Famotidine PF Inj 20 MG/2 ML Vial IV.PUSH SCH (20:21)
[2018-05-27] MEDS: Senna/Docusate Sodium 8.6/50 MG Tablet PO SCH (20:22)
[2018-05-27] MEDS: Famotidine 20 MG Tablet PO SCH (20:22)
[2018-05-27] MEDS: MethylPREDNISolone Sod Succinate Inj 125 MG/2 ML Vial IV.PUSH SCH (20:23)
[2018-05-27] MEDS ORDERED: Sod Chloride 0.9% Inj 3,000 ML IV.SIG ONE (21:00)
[2018-05-28] MEDS: Heparin - SQ 10,000 UNITS/ML Vial SQ SCH ×4 (00:06→23:43)
[2018-05-28] MEDS: Propofol 1000 mg/100 ml Inj 1,000 MG/100 ML BOTTLE IV.CONT PRN (00:06)
[2018-05-28] MEDS: Oral Hygiene Kit OROPHARYNG SCH ×5 (00:06→23:45)
[2018-05-28] MEDS ORDERED: Chlorhexidine Gluconate 2% 1 Pack (2 Cloths) TOPICAL PRN (04:00)
[2018-05-28 05:01] LABS: Baso % (Auto) 0.2 % (0.0-2.0); Hematocrit 40.4 % (35.0-46.0); Hemoglobin 13.2 gm/dL (11.6-15.3); Lymph # (Auto) 1.8 th/mm3 (1.0-4.8); Lymph % (Auto) 36.4 % (9.0-44.0); Mean Corpuscular HGB Conc 32.7 % (32.0-36.0); Mean Corpuscular Hemoglobin 29.7 pg (27.0-34.0); Mean Corpuscular Volume 90.7 fL (80.0-100.0); Mean Platelet Volume 8.8 fL (7.0-11.0); Mono # (Auto) 0.3 th/mm3 (0.0-0.9); Mono % (Auto) 6.1 % (0.0-8.0); Neut # (Auto) 2.9 th/mm3 (1.8-7.7); Neut % (Auto) 57.3 % (16.0-70.0); Platelet Count 146 th/mm3 (150-450); Red Blood Count 4.46 mil/mm3 (4.00-5.30); Red Cell Distribution Width 14.2 % (11.6-17.2); White Blood Count 5.1 th/mm3 (4.0-11.0)
[2018-05-28] MEDS: Chlorhexidine Gluconate 2% 1 Pack (2 Cloths) TOPICAL SCH (05:06)
[2018-05-28] MEDS: fentaNYL 10 mcg/mL Premix Drip 2,500 MCG/250 ML BAG IV.SIG PRN (05:07)
[2018-05-28 05:34] LABS: Albumin 2.6 g/dL (3.4-5.0); Calcium 6.8 mg/dL (8.5-10.1); Carbon Dioxide 26.1 meq/L (21.0-32.0); Magnesium 2.1 mg/dL (1.5-2.5); Potassium 3.5 meq/L (3.5-5.1); Total Protein 5.6 g/dL (6.4-8.2)
[2018-05-28] MEDS ORDERED: Calcium Gluconate Inj 1 GM in Dextrose 5% in Water Inj 100 ML IV.SIG ONE ×2 (06:53)
--- NOTE | 2018-05-28 06:56 | P.PNCC ---
Subjective Subjective Remarks/Hospital Course: 62yF presenting to the ED today with shortness of breath and cough. The patient' s daughter states that the patient has a history of severe COPD, is supposed to be using 2L O2 NC around the clock but doesn't, and has been complained of feeling "winded" and coughing for the past week. The patient does not like coming to hospitals or seeing doctors but her daughter convinced her to come this morning when she was complaining of feeling "sleepy". The patient was noted to be difficult to arouse in the ED, was given Narcan x 1 dose and placed on bipap. Her initial ABG showed a pCO2 of 101 which only improved to 95 after an hour and a half on bipap. The patient was intubated by the ED physician prior to my evaluation, and I obtained details of the HPI from her daughter at the bedside. 05/28: Patient was bradycardic overnight which improved when sedation was decreased. Patient awake and alert, sitting up in bed attempting to grab her ETT when I entered the room. Placed the patient on PS 8/5, tolerated well x 5 minutes, extubated by me. Patient is able to tell me her name, voice is soft/ hoarse. Objective Vital Signs / I&O: Vital Signs 05/27/18 10:46 05/27/18 10:55 05/27/18 11:12 Temperature 98.3 F Pulse Rate 100 H 101 H 93 H Respiratory Rate 42 H 26 H 17 Blood Pressure 135/77 Pulse Oximetry 50 L 98 100 05/27/18 11:49 05/27/18 12:16 05/27/18 13:00 Temperature Pulse Rate 101 H 88 Respiratory Rate 26 H 16 Blood Pressure 124/70 111/69 Pulse Oximetry 98 100 96 05/27/18 15:00 05/27/18 15:10 05/27/18 15:15 Temperature Pulse Rate 86 72 72 Respiratory Rate 21 17 Blood Pressure 120/74 95/61 L 96/61 L Pulse Oximetry 98 98 99 05/27/18 15:20 05/27/18 15:22 05/27/18 15:25 Temperature Pulse Rate 70 68 Respiratory Rate 18 18 18 Blood Pressure 98/66 L 101/64 Pulse Oximetry 99 98 99 05/27/18 15:30 05/27/18 15:40 11/16/18 15:54 Temperature Pulse Rate 66 68 88 Respiratory Rate 18 18 16 Blood Pressure 106/66 104/68 120/80 Pulse Oximetry 99 99 97 05/27/18 15:56 05/27/18 16:23 05/27/18 16:52 Temperature Pulse Rate 72 66 Respiratory Rate 17 18 18 Blood Pressure 108/69 99/65 L Pulse Oximetry 98 99 99 05/27/18 16:56 05/27/18 17:39 05/27/18 17:45 Temperature 99.0 F 99.0 F Pulse Rate 73 79 78 Respiratory Rate 18 18 18 Blood Pressure 84/57 L Pulse Oximetry 100 99 05/27/18 18:00 05/27/18 18:15 05/27/18 18:30 Temperature Pulse Rate 77 75 72 Respiratory Rate 18 14 14 Blood Pressure 86/60 L 85/59 L 98/64 L Pulse Oximetry 99 99 99 05/27/18 18:47 05/27/18 19:00 05/27/18 19:01 Temperature Pulse Rate 75 76 77 Respiratory Rate 14 16 26 H Blood Pressure 109/67 125/58 L Pulse Oximetry 99 95 95 05/27/18 19:22 05/27/18 19:24 05/27/18 19:30 Temperature Pulse Rate 68 68 66 Respiratory Rate 14 14 14 Blood Pressure 78/55 L 80/53 L Pulse Oximetry 100 100 100 05/27/18 19:45 05/27/18 20:00 05/27/18 20:07 Temperature 98.6 F Pulse Rate 69 71 71 Respiratory Rate 14 14 14 Blood Pressure 60/43 L 60/43 L 59/44 L Pulse Oximetry 97 97 97 05/27/18 20:15 05/27/18 20:31 05/27/18 20:45 Temperature Pulse Rate 67 69 68 Respiratory Rate 14 14 14 Blood Pressure 70/48 L 123/77 100/61 Pulse Oximetry 98 100 100 05/27/18 21:00 05/27/18 21:15 05/27/18 21:30 Temperature Pulse Rate 66 60 62 Respiratory Rate 14 14 14 Blood Pressure 89/56 L 93/56 L 94/53 L Pulse Oximetry 100 100 100 05/27/18 21:45 05/27/18 22:00 05/27/18 22:17 Temperature Pulse Rate 57 L 57 L 77 Respiratory Rate 14 14 18 Blood Pressure 92/55 L 92/56 L 125/69 Pulse Oximetry 100 100 88 L 05/27/18 22:30 05/27/18 22:45 05/27/18 23:00 Temperature Pulse Rate 61 55 L 52 L Respiratory Rate 14 14 14 Blood Pressure 111/60 106/64 102/65 Pulse Oximetry 100 100 100 05/27/18 23:15 05/27/18 23:31 05/27/18 23:45 Temperature Pulse Rate 50 L 77 69 Respiratory Rate 14 19 14 Blood Pressure 104/68 151/90 H 119/63 Pulse Oximetry 100 79 L 100 05/27/18 23:51 05/28/18 00:00 05/28/18 00:15 Temperature 97.5 F L Pulse Rate 79 58 L 71 Respiratory Rate 17 14 14 Blood Pressure 118/65 118/70 Pulse Oximetry 100 100 05/28/18 00:30 05/28/18 00:45 05/28/18 01:00 Temperature Pulse Rate 52 L 56 L 53 L Respiratory Rate 14 14 11 L Blood Pressure 103/58 L 105/61 110/69 Pulse Oximetry 100 99 100 05/28/18 01:15 05/28/18 01:30 05/28/18 01:45 Temperature Pulse Rate 52 L 67 49 L Respiratory Rate 14 7 L 14 Blood Pressure 95/56 L 109/66 91/58 L Pulse Oximetry 100 99 100 05/28/18 02:00 05/28/18 02:15 05/28/18 02:30 Temperature Pulse Rate 50 L 53 L 49 L Respiratory Rate 14 12 14 Blood Pressure 94/62 L 96/65 L 88/57 L Pulse Oximetry 100 100 100 05/28/18 02:45 05/28/18 03:00 05/28/18 03:11 Temperature Pulse Rate 47 L 50 L Respiratory Rate 11 L 14 18 Blood Pressure 89/59 L 92/61 L Pulse Oximetry 100 100 100 05/28/18 03:15 05/28/18 03:30 05/28/18 03:45 Temperature Pulse Rate 74 50 L 50 L Respiratory Rate 15 14 14 Blood Pressure 118/73 89/57 L 85/55 L Pulse Oximetry 92 L 100 100 05/28/18 04:00 05/28/18 04:01 05/28/18 04:27 Temperature 96.8 F L Pulse Rate 68 77 73 Respiratory Rate 15 14 17 Blood Pressure 86/59 L 112/67 Pulse Oximetry 94 L 96 100 05/28/18 04:30 05/28/18 04:45 05/28/18 04:50 Temperature Pulse Rate 73 58 L 55 L Respiratory Rate 14 14 14 Blood Pressure 110/68 78/53 L 75/50 L Pulse Oximetry 99 100 100 05/28/18 04:55 05/28/18 05:00 05/28/18 05:04 Temperature Pulse Rate 55 L 52 L 56 L Respiratory Rate 16 23 14 Blood Pressure 74/52 L 74/51 L 71/50 L Pulse Oximetry 100 100 100 05/28/18 05:12 05/28/18 05:20 05/28/18 05:24 Temperature Pulse Rate 54 L 55 L 48 L Respiratory Rate 14 14 14 Blood Pressure 72/49 L 69/49 L 79/50 L Pulse Oximetry 100 99 98 Intake & Output 05/27/18 05/27/18 05/28/18 06:59 18:59 06:59 Intake Total 1000 / 1000 450 / 450 Output Total 100 / 100 Balance 900 / 900 450 / 450 Weight 44.452 kg Intake: IV 1000 / 1000 450 / 450 Diprivan 1000 mg/100 ml Inj 1, 200 / 200 000 mg In 100 ml @ 5 MCG/KG/MIN 1.334 mls/hr IV.CONT TITRATE PRN Rx#:[id number] NS Inj 1,000 ML @ Wide Open IV. 1000 / 1000 SIG BOLUS ONE Rx#:[id number] fentaNYL 10 mcg/mL Premix Drip 250 / 250 2,500 mcg In 250 ml @ 50 MCG/HR 5 mls/hr IV.SIG TITRATE PRN Rx #:[id number] Output: Urine Amount (Catheter) 100 / 100 Indwelling Urethral Catheter 100 / 100 Other: Date of Last Bowel Movement 05/27/18 05/27/18 # Incontinent Bowel Movements 1 Result Diagrams: 05/28/18 04:13 05/28/18 04:13 Objective Remarks: GEN: Frail appearing female, agitated HEENT: NCAT, mucosa moist and pink NECK: Trachea midline, no JVD CARDIO: Regular rate and rhythm RESP: Improved air entry bilaterally with mild expiratory wheeze ABD/ GI: Soft, non-distended, non-tender throughout EXT/MSK: No peripheral edema SKIN: Warm, well-perfused NEURO: RASS +2, moving all extremities PSYCH: Initially agitated, calm after extubation Assessment and Plan - Assessment and Plan Plan: 62yF presenting with COPD exacerbation, CO2 narcosis, acute hypercapnic respiratory failure NEURO: -Nicotine patch, smoking cessation -Delirium precautions CARDIO: -No active issues RESP: -Scheduled and PRN nebs -Solumedrol 60mg q12h, given 125mg in ED -Extubated successfully F/E/N: -Bedside swallow eval -Electrolyte repletion protocol -BUN/ creat stable ID: -No active issues PROPHY: -PPI -SCDs, SQH Patient can move out of [facility] tomorrow if she remains stable overnight Counseling/ Coordination of Care: This patient is critically ill with impairment of one or more vital organ systems with a high probability of imminent or life-threatening deterioration. High-complexity medical decision making was required to support vital organ function and/ or prevent deterioration in the patient's condition. Total critical care time spent is 40 minutes giving full attention to this patient. This includes examining the patient, gathering history from someone other than the patient (i.e. chart review), discussing the patient's care with other providers, managing the patient's blood pressure and ventilator settings, ordering and interpreting radiologic studies, ordering and interpreting laboratory values, managing the patient's sedation requirements, re-evaluation at frequent intervals, and documentation. Amount of time is separate from teaching, counseling the patient and/or family, and exclusive of procedures. To help prompt me to consider important information that might be impacting today's encounter and assessment, information from prior notes written by myself or my colleagues may have been "brought forward" into today's note. My signature on this note, however, is an attestation that I personally performed the exam, history, and/or decision-making noted today, and, unless otherwise indicated, the interactions with patient, family, and staff as well as the review of records all occurred today. I also attest that the listed assessment and stated plan reflect my best clinical judgment today based on the combination of historical information, prior notes, and today's exam/ interactions. Code Status: Full
[2018-05-28] MEDS: Famotidine PF Inj 20 MG/2 ML Vial IV.PUSH SCH ×2 (09:27→20:35)
[2018-05-28] MEDS: Famotidine 20 MG Tablet PO SCH ×2 (09:28→20:35)
[2018-05-28] MEDS: Chlorhexidine 0.12% Oral Kit 15 ML UDC OROPHARYNG SCH (09:32)
[2018-05-28] MEDS: Sod Chloride 0.9% Inj 1,000 ML IV.CONT SCH (09:54)
[2018-05-28] MEDS: MethylPREDNISolone Sod Succinate Inj 125 MG/2 ML Vial IV.PUSH SCH ×2 (09:55→21:30)
[2018-05-28] MEDS: Senna/Docusate Sodium 8.6/50 MG Tablet PO SCH ×2 (10:06→20:35)
--- NOTE | 2018-05-28 16:01 | ECG ---
Date Performed: 05/27/2018 Time Performed: 11:00:37 PTAGE: 62 years EKG: Tecnically Poor tracing with marked baseline artifact V1 through V3 making these 3 leads un iterpretable. Marked atrial abnormality Vertical QRS axis PREVIOUS TRACING : 09/14/2015 17.35 Compared to previous tracing, the atrial abnormality is more prominent. Cannot interpret V1 through V3, Repeat EKG recommended . DOCTOR: Nathaniel You Interpretating Date/Time 05/28/2018 16:00:03
[2018-05-28] MEDS: LORazepam 1 MG Tablet PO PRN (17:48)
[2018-05-29] MEDS: LORazepam 1 MG Tablet PO PRN (00:05)
[2018-05-29] MEDS: Sod Chloride 0.9% Inj 1,000 ML IV.CONT SCH ×2 (03:43→03:44)
[2018-05-29] MEDS: Chlorhexidine Gluconate 2% 1 Pack (2 Cloths) TOPICAL SCH (04:32)
[2018-05-29] MEDS: Oral Hygiene Kit OROPHARYNG SCH ×3 (04:32→18:19)
[2018-05-29 05:57] LABS: Anion Gap 6 meq/L (5-15); Blood Urea Nitrogen 13 mg/dL (7-18); Calcium 7.6 mg/dL (8.5-10.1); Carbon Dioxide 26.3 meq/L (21.0-32.0); Chloride 112 meq/L (98-107); Glomerular Filtration Rate Greater Than 89 mL/min (>89); Glucose,Random 102 mg/dL (74-106); Magnesium 1.9 mg/dL (1.5-2.5); Potassium 4.1 meq/L (3.5-5.1); Sodium 144 meq/L (136-145)
[2018-05-29 06:18] LABS: Baso % (Auto) 0.2 % (0.0-2.0); Hematocrit 43.9 % (35.0-46.0); Hemoglobin 13.6 gm/dL (11.6-15.3); Lymph # (Auto) 1.4 th/mm3 (1.0-4.8); Lymph % (Auto) 9.6 % (9.0-44.0); Mean Corpuscular Hemoglobin 28.9 pg (27.0-34.0); Mean Corpuscular Volume 93.4 fL (80.0-100.0); Mono # (Auto) 0.4 th/mm3 (0.0-0.9); Neut # (Auto) 12.5 th/mm3 (1.8-7.7); Neut % (Auto) 87.2 % (16.0-70.0); Platelet Count 163 th/mm3 (150-450); Red Cell Distribution Width 14.6 % (11.6-17.2); White Blood Count 14.4 th/mm3 (4.0-11.0)
[2018-05-29 06:19] LABS: Mean Corpuscular HGB Conc 30.9 % (32.0-36.0)
[2018-05-29] MEDS ORDERED: Calcium Gluconate Inj 1 GM in Dextrose 5% in Water Inj 100 ML IV.SIG ONE ×2 (06:28)
[2018-05-29] MEDS: MethylPREDNISolone Sod Succinate Inj 125 MG/2 ML Vial IV.PUSH SCH ×2 (09:15→20:58)
[2018-05-29] MEDS: Senna/Docusate Sodium 8.6/50 MG Tablet PO SCH ×2 (09:16→20:58)
[2018-05-29] MEDS: Famotidine 20 MG Tablet PO SCH ×2 (09:16→20:58)
[2018-05-29] MEDS: Famotidine PF Inj 20 MG/2 ML Vial IV.PUSH SCH (09:16)
[2018-05-29] MEDS: Heparin - SQ 10,000 UNITS/ML Vial SQ SCH ×2 (09:17→15:12)
--- NOTE | 2018-05-29 11:59 | P.PNIM ---
Subjective Interval history: States that her breathing is better. She is not short of breath. She states that she has pain all over but would not give us a specific reason for the chronic pain. When offered her Toradol, Ultram, Tylenol she states that it likely will not work for her. Family members states that she was on Xanax 1 mg 4 times a day however review E force data shows patient was instructed to take it 3 times a day. She also has prescription for Ultram but no recent narcotic prescriptions. Physical Exam Vital signs: Last Vital Signs Temp 97.8 F 05/29/18 08:00 Pulse 100 H 05/29/18 11:36 Resp 20 05/29/18 11:36 BP 137/83 05/29/18 08:00 Pulse Ox 96 05/29/18 08:00 Intake & Output 05/27/18 05/28/18 05/29/18 05/30/18 06:59 06:59 06:59 06:59 Intake Total 1450 / 1450 2869 / 2869 100 / 100 Output Total 325 / 325 1250 / 1250 1025 / 1025 Balance 1125 / 1125 1619 / 1619 -925 / -925 Weight 45 kg 47.5 kg Narrative: GENERAL: This is a thin, well-developed patient, in no apparent distress. CARDIOVASCULAR: Regular rate and rhythm RESPIRATORY: Diffuse expiratory rhonchi bilaterally GASTROINTESTINAL: Abdomen soft, non-tender, nondistended. Normal active bowel sounds MUSCULOSKELETAL: Extremities without clubbing, cyanosis, or edema. NEURO: Alert & Oriented x3 to person, place, time, . Moves all ext x4 Urinary Catheter Management Indwelling Urethral Catheter: Cath placed during this visit: yes, but has since been removed by the nurse Insertion date: 05/27/18 Insertion time: 15:17 Removal date: 05/28/18 Removal time: 15:00 Straight: Cath placed during this visit: yes, but has since been removed by the nurse Insertion date: 05/29/18 Insertion time: 03:15 Removal date: 05/29/18 Removal time: 03:17 Results Labs CBC & Chem 7: 05/29/18 05:24 05/29/18 05:24 Assessment and Plan (1) COPD with acute exacerbation: Code(s): J44.1 - Chronic obstructive pulmonary disease with (acute) exacerbation Status: Acute Plan 62-year-old white female presented with shortness of breath coughing with a previous history of severe COPD with O2 dependence Acute hypercapnic respiratory failure with a history of COPD with O2 dependence- status post previous intubation and now extubated and currently on 3 L of oxygen , Acute COPD exacerbationcontinue with Solu-Medrol and DuoNeb treatments. Wean O2 to 2 L as tolerated. History of anxiety and being on chronic benzodiazepines. We will schedule home Xanax dose to prevent withdrawals. Tobacco abuse. Cessation counseling. DVT prophylaxisheparin Transfer out of the ICU Progress Note: Quality VTE Deep Vein Thrombosis/Pulmonary Embolism Present on Admission: Yes
[2018-05-29] MEDS: Ketorolac Inj 30 MG/ML (IVP) Vial IV.PUSH PRN ×2 (12:07→18:19)
[2018-05-29] MEDS: Calcium Carbonate 500 MG Tablet PO SCH (20:58)
[2018-05-30] MEDS: Oral Hygiene Kit OROPHARYNG SCH ×4 (01:09→17:55)
[2018-05-30] MEDS: Heparin - SQ 10,000 UNITS/ML Vial SQ SCH ×4 (01:09→23:30)
[2018-05-30] MEDS: Ketorolac Inj 30 MG/ML (IVP) Vial IV.PUSH PRN ×2 (01:12→09:43)
[2018-05-30] MEDS: Chlorhexidine Gluconate 2% 1 Pack (2 Cloths) TOPICAL SCH (06:08)
[2018-05-30 06:56] LABS: Anion Gap 6 meq/L (5-15); Blood Urea Nitrogen 10 mg/dL (7-18); Calcium 8.2 mg/dL (8.5-10.1); Carbon Dioxide 30.9 meq/L (21.0-32.0); Chloride 102 meq/L (98-107); Glomerular Filtration Rate Greater Than 89 mL/min (>89); Glucose,Random 95 mg/dL (74-106); Magnesium 1.7 mg/dL (1.5-2.5); Potassium 4.8 meq/L (3.5-5.1); Sodium 139 meq/L (136-145)
[2018-05-30 07:02] LABS: Baso % (Auto) 0.2 % (0.0-2.0); Hematocrit 40.9 % (35.0-46.0); Hemoglobin 13.1 gm/dL (11.6-15.3); Lymph # (Auto) 1.7 th/mm3 (1.0-4.8); Lymph % (Auto) 15.7 % (9.0-44.0); Mean Corpuscular HGB Conc 31.9 % (32.0-36.0); Mean Corpuscular Hemoglobin 29.2 pg (27.0-34.0); Mean Corpuscular Volume 91.6 fL (80.0-100.0); Mean Platelet Volume 8.7 fL (7.0-11.0); Mono # (Auto) 0.4 th/mm3 (0.0-0.9); Mono % (Auto) 3.6 % (0.0-8.0); Neut # (Auto) 8.5 th/mm3 (1.8-7.7); Neut % (Auto) 80.5 % (16.0-70.0); Platelet Count 153 th/mm3 (150-450); Red Blood Count 4.46 mil/mm3 (4.00-5.30); Red Cell Distribution Width 14.4 % (11.6-17.2); White Blood Count 10.6 th/mm3 (4.0-11.0)
[2018-05-30] MEDS: Calcium Carbonate 500 MG Tablet PO SCH ×2 (09:36→21:49)
[2018-05-30] MEDS: Senna/Docusate Sodium 8.6/50 MG Tablet PO SCH ×2 (09:37→21:49)
[2018-05-30] MEDS: Famotidine 20 MG Tablet PO SCH ×2 (09:37→21:49)
[2018-05-30] MEDS: MethylPREDNISolone Sod Succinate Inj 125 MG/2 ML Vial IV.PUSH SCH ×2 (09:41→21:50)
--- NOTE | 2018-05-30 10:49 | P.PNIM ---
Subjective Interval history: f/u; respiratory failure in no acute distress- on oxygen via N/C. says that overall her sob is improving. has occasional dry cough. complaining of anxiety and chronic pain. Physical Exam Vital signs: Vital Signs 05/29/18 11:36 05/29/18 12:00 05/29/18 16:00 Temperature 99.0 F 97.7 F Pulse Rate 100 H 103 H 92 H Respiratory Rate 20 24 18 Blood Pressure 166/98 H 166/83 H Pulse Oximetry 93 L 93 L 05/29/18 20:00 05/29/18 21:06 05/29/18 21:07 Temperature 99.2 F Pulse Rate 89 84 Respiratory Rate 16 20 Blood Pressure 152/91 H Pulse Oximetry 93 L 93 L 05/30/18 00:00 05/30/18 04:00 05/30/18 08:00 Temperature 98.9 F 98.8 F 98.9 F Pulse Rate 94 H 82 83 Respiratory Rate 18 16 20 Blood Pressure 146/81 H 149/86 H 159/89 H Pulse Oximetry 97 95 93 L 05/30/18 08:07 Temperature Pulse Rate 88 Respiratory Rate 20 Blood Pressure Pulse Oximetry Intake & Output 05/29/18 05/30/18 05/30/18 18:59 06:59 18:59 Intake Total 1340 / 1340 360 / 360 Output Total 1025 / 1025 2475 / 2475 Balance 315 / 315 -2115 / -2115 Weight 45 kg Intake: IV 1100 / 1100 NS Inj 1,000 ML @ 84 mls/hr IV. 1000 / 1000 CONT .[id number] [facility] Rx#:[id number] Calcium Gluconate Inj 1 GM In 100 / 100 D5W Inj 100 ML @ 110 mls/hr IV. SIG ONCE ONE Rx#:[id number] Oral 240 / 240 360 / 360 Output: Urine 1025 / 1025 2475 / 2475 Other: Date of Last Bowel Movement 05/27/18 - Constitutional no acute distress - Routine Respiratory Exam Present: wheezes (mild wheezing bilaterally.) - Routine Cardiovascular Exam Present: RRR - Routine Abdominal Exam Present: soft - Routine Extremities Exam Comments: no pedal edema. - Routine Neurological Exam Present: alert, oriented X3 - Urinary Catheter Management Indwelling Urethral Catheter Cath placed during this visit: yes, but has since been removed by the nurse Reason for continuing: Hourly intake/output Insertion date: 05/27/18 Insertion time: 15:17 Removal date: 05/28/18 Removal time: 15:00 Straight Cath placed during this visit: yes, but has since been removed by the nurse Reason for continuing: Not indwelling catheter Insertion date: 05/29/18 Insertion time: 03:15 Removal date: 05/29/18 Removal time: 03:17 Results - Labs CBC & Chem 7: 05/30/18 05:00 05/30/18 05:00 Laboratory Results - last 24 hr 05/30/18 05/30/18 05:00 05:00 WBC 10.6 RBC 4.46 Hgb 13.1 Hct 40.9 MCV 91.6 MCH 29.2 MCHC 31.9 L RDW 14.4 Plt Count 153 MPV 8.7 Neut % (Auto) 80.5 H Lymph % (Auto) 15.7 [place] % (Auto) 3.6 Eos % (Auto) 0.0 Baso % (Auto) 0.2 Neut # (Auto) 8.5 H Lymph # (Auto) 1.7 [place] # (Auto) 0.4 Eos # (Auto) 0.0 Baso # (Auto) 0.0 WBC Differential . Differential Comment Auto diff final Sodium 139 Potassium 4.8 Chloride 102 D Carbon Dioxide 30.9 Anion Gap 6 BUN 10 Creatinine 0.54 Estimated GFR Greater than 89 Random Glucose 95 Calcium 8.2 L Magnesium 1.7 Assessment and Plan - Assessment (1) COPD with acute exacerbation Code(s): J44.1 - Chronic obstructive pulmonary disease with (acute) exacerbation Status: Acute - Plan Acute hypercapnic respiratory failure with a history of COPD with O2 dependence- status post previous intubation and now extubated and currently oxygen via N/C. Acute COPD exacerbationcontinue with Solu-Medrol and DuoNeb treatments. Wean O2 to 2 L as tolerated. History of anxiety and being on chronic benzodiazepines. on scheduled home Xanax dose to prevent withdrawals. Tobacco abuse. Cessation counseling. DVT prophylaxisheparin continue PT. Discharge Planning: dc planning ; possible rehab within the next 1-2 days if continues to improve.
[2018-05-31] MEDS: Oral Hygiene Kit OROPHARYNG SCH ×4 (02:42→15:34)
[2018-05-31] MEDS: Chlorhexidine Gluconate 2% 1 Pack (2 Cloths) TOPICAL SCH (04:49)
[2018-05-31 07:41] LABS: Baso % (Auto) 0.2 % (0.0-2.0); Hematocrit 41.5 % (35.0-46.0); Lymph # (Auto) 1.9 th/mm3 (1.0-4.8); Lymph % (Auto) 15.8 % (9.0-44.0); Mean Corpuscular HGB Conc 33.7 % (32.0-36.0); Mean Corpuscular Volume 89.1 fL (80.0-100.0); Mean Platelet Volume 8.8 fL (7.0-11.0); Mono # (Auto) 0.4 th/mm3 (0.0-0.9); Mono % (Auto) 3.7 % (0.0-8.0); Neut # (Auto) 9.7 th/mm3 (1.8-7.7); Neut % (Auto) 80.3 % (16.0-70.0); Platelet Count 179 th/mm3 (150-450); Red Blood Count 4.66 mil/mm3 (4.00-5.30); Red Cell Distribution Width 14.3 % (11.6-17.2); White Blood Count 12.1 th/mm3 (4.0-11.0)
[2018-05-31 08:01] LABS: Anion Gap 5 meq/L (5-15); Blood Urea Nitrogen 12 mg/dL (7-18); Calcium 8.8 mg/dL (8.5-10.1); Carbon Dioxide 40.4 meq/L (21.0-32.0); Chloride 94 meq/L (98-107); Glomerular Filtration Rate Greater Than 89 mL/min (>89); Glucose,Random 115 mg/dL (74-106); Magnesium 1.7 mg/dL (1.5-2.5); Potassium 3.8 meq/L (3.5-5.1); Sodium 139 meq/L (136-145)
[2018-05-31] MEDS: Heparin - SQ 10,000 UNITS/ML Vial SQ SCH ×3 (08:06→22:14)
[2018-05-31] MEDS: Famotidine 20 MG Tablet PO SCH ×2 (09:04→20:32)
[2018-05-31] MEDS: Senna/Docusate Sodium 8.6/50 MG Tablet PO SCH ×2 (09:04→20:31)
[2018-05-31] MEDS: Calcium Carbonate 500 MG Tablet PO SCH ×2 (09:04→20:31)
[2018-05-31] MEDS: MethylPREDNISolone Sod Succinate Inj 125 MG/2 ML Vial IV.PUSH SCH (09:05)
--- NOTE | 2018-05-31 10:49 | P.PNIM ---
Subjective Interval history: f/u; respiratory failure in no acute distress. still with some sob/ wheezing. has occasional cough. no fever. Physical Exam Vital signs: Vital Signs 05/30/18 11:38 05/30/18 12:00 05/30/18 16:00 Temperature 98.9 F 97 F L Pulse Rate 93 H 82 85 Respiratory Rate 20 18 18 Blood Pressure 156/96 H 151/83 H Pulse Oximetry 93 L 91 L 93 L 05/30/18 16:22 05/30/18 19:50 05/30/18 20:00 Temperature 98.3 F Pulse Rate 96 H 94 H 106 H Respiratory Rate 24 19 Blood Pressure 140/70 Pulse Oximetry 93 L 05/30/18 20:19 05/30/18 23:50 05/31/18 00:00 Temperature 98.1 F Pulse Rate 96 H 86 94 H Respiratory Rate 16 17 Blood Pressure 138/80 Pulse Oximetry 91 L 93 L 05/31/18 04:00 05/31/18 06:00 05/31/18 08:00 Temperature 98.4 F 97.8 F Pulse Rate 88 83 83 Respiratory Rate 16 19 18 Blood Pressure 111/63 120/74 Pulse Oximetry 94 L 94 L 05/31/18 08:11 Temperature Pulse Rate 83 Respiratory Rate 15 Blood Pressure Pulse Oximetry Intake & Output 05/30/18 05/31/18 05/31/18 18:59 06:59 18:59 Intake Total 420 / 420 Output Total 600 / 600 400 / 400 Balance -600 / -600 20 / 20 Weight 45 kg Intake: Oral 420 / 420 Output: Urine 600 / 600 400 / 400 Other: Date of Last Bowel Movement 05/30/18 05/30/18 # Bowel Movements 1 - Constitutional mild distress - Routine Respiratory Exam Present: prolonged expiratory phase, wheezes - Routine Cardiovascular Exam Present: RRR - Routine Abdominal Exam Present: soft - Routine Extremities Exam Comments: no pedal edema. - Routine Neurological Exam Present: alert, oriented X3 - Urinary Catheter Management Indwelling Urethral Catheter Cath placed during this visit: yes, but has since been removed by the nurse Reason for continuing: Hourly intake/output Insertion date: 05/27/18 Insertion time: 15:17 Removal date: 05/28/18 Removal time: 15:00 Straight Cath placed during this visit: yes, but has since been removed by the nurse Reason for continuing: Not indwelling catheter Insertion date: 05/29/18 Insertion time: 03:15 Removal date: 05/29/18 Removal time: 03:17 Results - Labs CBC & Chem 7: 05/31/18 06:00 05/31/18 06:00 Laboratory Results - last 24 hr 05/31/18 05/31/18 06:00 06:00 WBC 12.1 H RBC 4.66 Hgb 14.0 Hct 41.5 MCV 89.1 MCH 30.0 MCHC 33.7 RDW 14.3 Plt Count 179 MPV 8.8 Neut % (Auto) 80.3 H Lymph % (Auto) 15.8 [place] % (Auto) 3.7 Eos % (Auto) 0.0 Baso % (Auto) 0.2 Neut # (Auto) 9.7 H Lymph # (Auto) 1.9 [place] # (Auto) 0.4 Eos # (Auto) 0.0 Baso # (Auto) 0.0 WBC Differential . Differential Comment Auto diff final Sodium 139 Potassium 3.8 D Chloride 94 L D Carbon Dioxide 40.4 H D Anion Gap 5 BUN 12 Creatinine 0.57 Estimated GFR Greater than 89 Random Glucose 115 H Calcium 8.8 Magnesium 1.7 Assessment and Plan - Assessment (1) COPD with acute exacerbation Code(s): J44.1 - Chronic obstructive pulmonary disease with (acute) exacerbation Status: Acute - Plan Acute hypercapnic respiratory failure with a history of COPD with O2 dependence- status post previous intubation and now extubated and currently oxygen via N/C. Acute COPD exacerbationcontinue with Solu-Medrol and DuoNeb treatments. Wean O2 to 2 L as tolerated. will start to taper down the IV steroids. History of anxiety and being on chronic benzodiazepines. on scheduled home Xanax dose to prevent withdrawals. Tobacco abuse. Cessation counseling. DVT prophylaxisheparin continue PT. Discharge Planning: rehab offered but the patient declined. will dc home with [facility] tomorrow if stable.
--- NOTE | 2018-05-31 10:49 | P.DCO ---
- Physical Therapy Order: Evaluate and treat - Home Health Nursing Order: Medical education, Signs/symptoms of disease process, Medication education-adverse effect, Nursing assessment with vital signs - Case Management Consult Case Management Consult-Home Health: Yes - Certification I have seen patient Bharat Britton on 05/31/18. My clinical findings support the need for the requested home health care services because: Patient has SOB I certify that my clinical findings support that this patient is homebound because: Hx COPD - exertion dyspnea/weakness
[2018-05-31] MEDS: MethylPREDNISolone Sod Succinate Inj 40 MG/ML Vial IV.PUSH SCH (20:30)
[2018-06-01 01:34] VITALS: O2SAT 95
[2018-06-01] MEDS: Oral Hygiene Kit OROPHARYNG SCH ×3 (02:14→11:27)
[2018-06-01 05:08] VITALS: BP 115/72
[2018-06-01] MEDS: Chlorhexidine Gluconate 2% 1 Pack (2 Cloths) TOPICAL SCH (05:15)
[2018-06-01] MEDS: Heparin - SQ 10,000 UNITS/ML Vial SQ SCH (06:01)
[2018-06-01 08:19] VITALS: RESP 18; TEMP 98.1
[2018-06-01] MEDS: Famotidine 20 MG Tablet PO SCH (08:27)
[2018-06-01] MEDS: Calcium Carbonate 500 MG Tablet PO SCH (08:27)
[2018-06-01] MEDS: MethylPREDNISolone Sod Succinate Inj 40 MG/ML Vial IV.PUSH SCH (08:27)
[2018-06-01] MEDS: Senna/Docusate Sodium 8.6/50 MG Tablet PO SCH (08:27)
[2018-06-01 09:54] VITALS: PULSE 78
--- NOTE | 2018-06-01 09:58 | P.PNIM ---
Subjective Interval history: f/u; copd exacerbation looks comfortable with no distress. no fever. no new complaints and wants to go home. Physical Exam Vital signs: Vital Signs 05/31/18 12:00 05/31/18 16:00 05/31/18 16:17 Temperature 97.8 F 97.3 F L Pulse Rate 97 H 92 H Respiratory Rate 18 18 Blood Pressure 142/84 H 167/86 H Pulse Oximetry 97 94 L 94 L 05/31/18 16:18 05/31/18 19:49 05/31/18 19:50 Temperature Pulse Rate 89 91 H 97 H Respiratory Rate 18 16 Blood Pressure Pulse Oximetry 05/31/18 20:00 05/31/18 23:45 06/01/18 00:00 Temperature 97.9 F 97.9 F Pulse Rate 94 H 78 82 Respiratory Rate 19 18 Blood Pressure 153/82 H 128/73 Pulse Oximetry 93 L 95 06/01/18 03:50 06/01/18 04:00 06/01/18 08:00 Temperature 97.9 F 98.1 F Pulse Rate 77 72 78 Respiratory Rate 16 18 Blood Pressure 115/72 115/72 Pulse Oximetry 95 95 Intake & Output 05/31/18 06/01/18 06/01/18 18:59 06:59 18:59 Intake Total 420 / 420 620 / 620 Output Total 1150 / 1150 500 / 500 Balance -730 / -730 120 / 120 Weight 45 kg Intake: Oral 420 / 420 620 / 620 Output: Urine 400 / 400 500 / 500 Urine Amount (Catheter) 750 / 750 Straight 750 / 750 Other: # Voids 3 Date of Last Bowel Movement 05/30/18 05/31/18 # Bowel Movements 1 # Incontinent Bowel Movements 0 - Constitutional no acute distress - Routine Respiratory Exam Present: diminished air movement - Routine Cardiovascular Exam Present: RRR - Routine Abdominal Exam Present: soft - Routine Extremities Exam Comments: no pedal edema. - Routine Neurological Exam Present: alert, oriented X3 - Urinary Catheter Management Indwelling Urethral Catheter Cath placed during this visit: yes, but has since been removed by the nurse Reason for continuing: Hourly intake/output Insertion date: 05/27/18 Insertion time: 15:17 Removal date: 05/28/18 Removal time: 15:00 Straight Cath placed during this visit: yes, but has since been removed by the nurse Reason for continuing: Not indwelling catheter Insertion date: 05/29/18 Insertion time: 03:15 Removal date: 05/29/18 Removal time: 03:17 Results - Labs CBC & Chem 7: 05/31/18 06:00 05/31/18 06:00 Assessment and Plan - Assessment (1) COPD with acute exacerbation Code(s): J44.1 - Chronic obstructive pulmonary disease with (acute) exacerbation Status: Acute - Plan Acute hypercapnic respiratory failure with a history of COPD with O2 dependence- status post previous intubation and now extubated and currently oxygen via N/C. Acute COPD exacerbationhas much improved. will switch to oral prednisone- patient is on home oxygen and has nebulizer at home. History of anxiety and being on chronic benzodiazepines. on scheduled home Xanax dose to prevent withdrawals. Tobacco abuse. Cessation counseling. DVT prophylaxisheparin continue PT. Discharge Planning: rehab offered but the patient declined. will dc home with [facility] today. see med list. f/u; pcp.
--- NOTE | 2018-06-01 10:01 | P.DS ---
Date of admission: 05/27/18 14:22 Primary care physician: UNKNOWN Brief History from admission: 62yF presenting to the ED today with shortness of breath and cough. The patient' s daughter states that the patient has a history of severe COPD, is supposed to be using 2L O2 NC around the clock but doesn't, and has been complained of feeling "winded" and coughing for the past week. The patient does not like coming to hospitals or seeing doctors but her daughter convinced her to come this morning when she was complaining of feeling "sleepy". The patient was noted to be difficult to arouse in the ED, was given Narcan x 1 dose and placed on bipap. Her initial ABG showed a pCO2 of 101 which only improved to 95 after an hour and a half on bipap. The patient was intubated by the ED physician prior to my evaluation, and I obtained details of the HPI from her daughter at the bedside. COPD on nebs at home, daughter does not think that the patient takes chronic or frequent steroids but says that she has required ICU admission/ intubation several times in the past, still smokes, frequently non-compliant with home O2. DS: Diagnosis - Discharge Diagnosis (1) COPD with acute exacerbation Status: Acute DS: Medications - Discharge Medications Prescriptions: prednisone [Yadira] 5 mg PO DIRECTED 10 Days tab DS: Summary Hospital Course: Acute hypercapnic respiratory failure with a history of COPD with O2 dependence- status post previous intubation and now extubated and currently oxygen via N/C. Acute COPD exacerbationhas much improved. will switch to oral prednisone- patient is on home oxygen and has nebulizer at home. History of anxiety and being on chronic benzodiazepines. on scheduled home Xanax dose to prevent withdrawals. Tobacco abuse. Cessation counseling. DVT prophylaxisheparin continue PT. - Time Spent with Patient Total time spent providing and/or coordinating discharge services: Less than 30 minutes - Quality: VTE Deep Vein Thrombosis/Pulmonary Embolism Present on Admission: Yes Exam Vital signs: Vital Signs 05/31/18 12:00 05/31/18 16:00 05/31/18 16:17 Temperature 97.8 F 97.3 F L Pulse Rate 97 H 92 H Respiratory Rate 18 18 Blood Pressure 142/84 H 167/86 H Pulse Oximetry 97 94 L 94 L 05/31/18 16:18 05/31/18 19:49 05/31/18 19:50 Temperature Pulse Rate 89 91 H 97 H Respiratory Rate 18 16 Blood Pressure Pulse Oximetry 05/31/18 20:00 05/31/18 23:45 06/01/18 00:00 Temperature 97.9 F 97.9 F Pulse Rate 94 H 78 82 Respiratory Rate 19 18 Blood Pressure 153/82 H 128/73 Pulse Oximetry 93 L 95 06/01/18 03:50 06/01/18 04:00 06/01/18 08:00 Temperature 97.9 F 98.1 F Pulse Rate 77 72 78 Respiratory Rate 16 18 Blood Pressure 115/72 115/72 Pulse Oximetry 95 95 Intake & Output 05/31/18 06/01/18 06/01/18 18:59 06:59 18:59 Intake Total 420 / 420 620 / 620 Output Total 1150 / 1150 500 / 500 Balance -730 / -730 120 / 120 Weight 45 kg Intake: Oral 420 / 420 620 / 620 Output: Urine 400 / 400 500 / 500 Urine Amount (Catheter) 750 / 750 Straight 750 / 750 Other: # Voids 3 Date of Last Bowel Movement 05/30/18 05/31/18 # Bowel Movements 1 # Incontinent Bowel Movements 0 - Constitutional no acute distress - Routine Respiratory Exam Present: diminished air movement - Routine Cardiovascular Exam Present: RRR - Routine Abdominal Exam Present: soft - Routine Extremities Exam Comments: no pedal edema. - Routine Neurological Exam Present: alert, oriented X3 Results Procedures completed during hospitalization: intubation. - Impressions ITS Impressions Chest X-Ray 05/27/18 14:11 CONCLUSION: COPD changes. ET tube in good position. Discharge Plan - Discharge Disposition Patient Disposition: /Home Health Service - Discharge Condition Condition: Fair - Discharge Order Discharge Orders: Discharge Order (Routine); Ordered 06/01/18 Ordered By: Don Nunez - Physicians Team Primary Care Provider: UNKNOWN, Attending Provider: Don Nunez
== END 2018-06-01 12:35 | disposition home health service (06) ==
LOC: NEPC 10:21 → NEDA 14:22 → HIMC 16:44 → N04 05-29 14:49
PROVIDERS: ADMIT Internal Medicine; ATTEND Internal Medicine

== ENCOUNTER 2018-09-02 19:50 | Inpatient (IN) ==
[2018-09-02] MEDS ORDERED: MethylPREDNISolone Sod Succinate Inj 125 MG/2 ML Vial IV.PUSH ONE (20:03)
[2018-09-02 20:21] LABS: ABG Base Excess 9.4 mmol/L (-2-2); ABG PCO2 75 mmHg (38-42); ABG PO2 51 mmHg (61-120)
--- NOTE | 2018-09-02 20:23 | ED ---
HPI General Chief Complaint: Shortness of Breath/Dyspnea Stated Complaint: troulble breathing Time Seen by Provider: 09/02/18 20:02 Source: patient and EMS Mode of arrival: EMS Limitations: no limitations History of Present Illness Patient presents for evaluation of shortness of breath, productive cough. She reports multiple family members who have been sick. Patient is on O2 at 2 L via nasal cannula, she reports compliance although she was not on oxygen when EMS arrived on scene and her O2 sat at the time was in the 50s. Patient denies any chest pain, fever, chills, headache, dizziness, abdominal pain. MD Complaint: Reports shortness of breath and cough Onset (ago): day(s) Context: Reports recent illness, medication noncompliance and smoke/fume exposure Severity: moderate Consistency/Duration: progressively worsening Relieving factors: nothing Exacerbating factors: exertion and coughing Known history of: Reports COPD Associated symptoms: Reports cough, wheezing, sputum production and orthopnea; Denies chest pain, fever, hemoptysis, diaphoresis, nausea/vomiting, syncope, chest congestion, dizziness and lightheadedness Treatment prior to arrival: Reports oxygen, bronchodilator and other ( solumedrol per ems) Related Data Home oxygen amount: 2 liters Home Medications Medication Instructions Recorded Confirmed albuterol sulfate 2.5 mg INHALATION Q4H PRN 05/27/18 09/02/18 albuterol sulfate [ProAir HFA] 1 puff INHALATION Q4-6H PRN 05/27/18 09/02/18 alprazolam 1 mg PO BID 05/27/18 09/02/18 fluticasone [Flovent HFA] 1 inh INHALATION Q12H 05/27/18 09/02/18 zolpidem 5 mg PO HS 05/27/18 09/02/18 tramadol 50 mg PO TID 09/02/18 09/02/18 Allergies Allergy/AdvReac Type Severity Reaction Status Date / Time meperidine Allergy Severe Nausea/Vomi Verified 08/05/18 12:09 ting acetaminophen Allergy Intermediate Nausea/Vomi Verified 08/05/18 12:09 ting propoxyphene Allergy Intermediate Nausea/Vomi Verified 08/05/18 12:09 ting Review of Systems ROS: all other systems reviewed are negative [facility] Medical History Medical History Anxiety (Acute) COPD (chronic obstructive pulmonary disease) (Acute) Chronic pain (Acute) Social History Social History Substance History: No History of Abuse Second Hand Smoke Exposure: No Smoking Status: Current every day smoker Tobacco Type: Cigarettes How Often Do You Have a Drink Containing Alcohol: Never Recent Travel in [facility] within the Last 8 Weeks: No Recent Out of Country Travel within the Last 8 Weeks: No Immunization History Tetanus Immunization: >5 Years Exam Narrative Exam Narrative: GENERAL: Thin, alert, well-developed female. Presenting in no acute distress. SKIN: Focused skin assessment warm/dry. HEAD: Atraumatic. Normocephalic. EYES: Pupils equal and round. No scleral icterus. No injection or drainage. ENT: No nasal bleeding or discharge. Mucous membranes pink and moist. NECK: Trachea midline. No JVD. CARDIOVASCULAR: Tachycardic. No murmur appreciated. RESPIRATORY: No accessory muscle use. Diminished in bases, expiratory wheezes throughout GASTROINTESTINAL: Abdomen soft, non-tender, nondistended. Hepatic and splenic margins not palpable. MUSCULOSKELETAL: No obvious deformities. No clubbing. No cyanosis. No edema. NEUROLOGICAL: Awake and alert, oriented x2. No obvious cranial nerve deficits. Motor grossly within normal limits. Normal speech. PSYCHIATRIC: Appropriate mood and affect; insight and judgment normal. Course Initial Documented Vital Signs Temperature 99.2 F 09/02/18 20:00 Pulse Rate 112 H 09/02/18 20:00 Respiratory Rate 22 09/02/18 20:00 Blood Pressure 114/73 09/02/18 20:00 Pulse Oximetry 89 L 09/02/18 20:00 Last Documented Vital Signs Temperature 99.2 F 09/02/18 20:00 Pulse Rate 85 09/02/18 23:41 Respiratory Rate 22 09/02/18 23:41 Blood Pressure 104/64 09/02/18 23:04 Pulse Oximetry 94 L 09/02/18 23:15 Medical Decision Making NITISH Attestation NITISH supervised visit: Yes Attestation: I, Dr. Rosenberg, have reviewed the advance practice practitioner's documentation and am in agreement, met with the patient face to face, made the diagnosis, and the medical decision making was done by me. *My assessment and Findings: This patient presented to us with shortness of breath, hypoxia and altered mental status. She has O2 dependent COPD. Her significant other reports that she inadvertently took off her oxygen while she was sleeping. She then became very confused. [facility] was called and she was brought to the hospital. Her significant other reports that she is now back to baseline. On exam, her breath sounds are diminished throughout. Please see Lay Lacey, COACH WIRER's note for a more detailed H&P, final diagnosis and disposition MDM Narrative Medical decision making narrative: Patient presented for evaluation of increasing shortness of breath over the last week. She reports compliance with home O2 and nebulizer treatments. Labs and imaging ordered and pending, ABG ordered, patient will be placed on BiPAP, patient has been intubated in the past , most recently in May 2018. Again patient has received DuoNeb, albuterol , Solu-Medrol in route via EMS. Labs reviewed, CBC with no acute findings, chemistry with no acute findings. ABG with chronic respiratory acidosis. Chest x-ray shows no acute disease Patient improved on BiPAP, her heart rate trended down to the 90s and her O2 sat was 94. Patient was resting comfortably. Her and daughter at bedside. Discussed with Dr. Yue Mays, patient admitted to the ICU. Admit orders placed. At this time patient is agreeable. Medical Screen Exam Complete: Yes Emergency Medical Condition: Yes Differential Diagnosis Differential Diagnosis: COPD exacerbation versus pneumonia versus metabolic abnormality versus respiratory failure versus other Medical Records Medical records reviewed: Yes I reviewed the patient's medical records. Lab Data Lab results reviewed: Yes I reviewed the patient's lab results. Result diagrams: 09/02/18 20:18 09/02/18 20:18 Lab Results 09/02/18 09/02/18 09/02/18 Range/Units 20:10 20:18 20:18 WBC 10.6 (4.0-11.0) th/mm3 RBC 4.46 (4.00-5.30) mil/mm3 Hgb 13.4 (11.6-15.3) gm/dL Hct 40.6 (35.0-46.0) % MCV 91.0 (80.0-100.0) fL MCH 30.0 (27.0-34.0) pg MCHC 33.0 (32.0-36.0) % RDW 13.9 (11.6-17.2) % Plt Count 187 (150-450) th/mm3 MPV 8.3 (7.0-11.0) fL Neut % (Auto) 74.8 H (16.0-70.0) % Lymph % (Auto) 15.2 (9.0-44.0) % Bullitt % (Auto) 9.1 H (0.0-8.0) % Eos % (Auto) 0.5 (0.0-4.0) % Baso % (Auto) 0.4 (0.0-2.0) % Neut # (Auto) 7.9 H (1.8-7.7) th/mm3 Lymph # (Auto) 1.6 (1.0-4.8) th/mm3 Bullitt # (Auto) 1.0 H (0.0-0.9) th/mm3 Eos # (Auto) 0.1 (0.0-0.4) th/mm3 Baso # (Auto) 0.0 (0.0-0.2) th/mm3 WBC Differential . Differential Comment Auto diff final Puncture Site Left radial Patient Temperature 98.6 O2 Saturation 80 L* (90-100) % ABG pH 7.30 L (7.380-7.420) ABG pCO2 75 H* (38-42) mmHg ABG pO2 51 L* (61-120) mmHg ABG HCO3 36 H (22-26) mmol/L ABG O2 Content 14.5 (12.0-20.0) Vol % ABG Base Excess 9.4 H (-2-2) mmol/L ABG Methemoglobin 0.7 (0-2) % Gus Test Present Hemoglobin 12.9 (12.0-16.0) G/DL Carboxyhemoglobin 3.7 (0-4) % O2 Delivery Device Nasal cannula Liter Flow 2.00 L/M Vent Setting Inspired O2 % Critical Value Yes Sodium 136 (136-145) meq/L Potassium 3.9 (3.5-5.1) meq/L Chloride 96 L (98-107) meq/L Carbon Dioxide 35.6 H (21.0-32.0) meq/L Anion Gap 4 L (5-15) meq/L BUN 7 (7-18) mg/dL Creatinine 0.49 L (0.50-1.00) mg/dL Estimated GFR Greater than 89 (>89) mL/min Random Glucose 106 (74-106) mg/dL Calcium 8.5 (8.5-10.1) mg/dL Magnesium 1.9 (1.5-2.5) mg/dL Total Bilirubin 0.3 (0.2-1.0) mg/dL AST 13 L (15-37) U/L ALT 12 (10-53) U/L Alkaline Phosphatase 90 (45-117) U/L Total Creatine Kinase 34 (26-192) U/L Troponin I Less than 0.02 L (0.02-0.05) ng/mL Total Protein 6.9 (6.4-8.2) g/dL Albumin 3.0 L (3.4-5.0) g/dL 09/02/18 Range/Units 23:00 WBC (4.0-11.0) th/mm3 RBC (4.00-5.30) mil/mm3 Hgb (11.6-15.3) gm/dL Hct (35.0-46.0) % MCV (80.0-100.0) fL MCH (27.0-34.0) pg MCHC (32.0-36.0) % RDW (11.6-17.2) % Plt Count (150-450) th/mm3 MPV (7.0-11.0) fL Neut % (Auto) (16.0-70.0) % Lymph % (Auto) (9.0-44.0) % Bullitt % (Auto) (0.0-8.0) % Eos % (Auto) (0.0-4.0) % Baso % (Auto) (0.0-2.0) % Neut # (Auto) (1.8-7.7) th/mm3 Lymph # (Auto) (1.0-4.8) th/mm3 Bullitt # (Auto) (0.0-0.9) th/mm3 Eos # (Auto) (0.0-0.4) th/mm3 Baso # (Auto) (0.0-0.2) th/mm3 WBC Differential Differential Comment Puncture Site Right radial Patient Temperature 98.6 O2 Saturation 88 L* (90-100) % ABG pH 7.29 L* (7.380-7.420) ABG pCO2 76 H* (38-42) mmHg ABG pO2 63 (61-120) mmHg ABG HCO3 35 H (22-26) mmol/L ABG O2 Content 16.0 (12.0-20.0) Vol % ABG Base Excess 8.6 H (-2-2) mmol/L ABG Methemoglobin 0.6 (0-2) % Gus Test Present Hemoglobin 12.9 (12.0-16.0) G/DL Carboxyhemoglobin 2.8 (0-4) % O2 Delivery Device Bipap Liter Flow L/M Vent Setting Ipap=10 epap=5 Inspired O2 50 % Critical Value Yes Sodium (136-145) meq/L Potassium (3.5-5.1) meq/L Chloride (98-107) meq/L Carbon Dioxide (21.0-32.0) meq/L Anion Gap (5-15) meq/L BUN (7-18) mg/dL Creatinine (0.50-1.00) mg/dL Estimated GFR (>89) mL/min Random Glucose (74-106) mg/dL Calcium (8.5-10.1) mg/dL Magnesium (1.5-2.5) mg/dL Total Bilirubin (0.2-1.0) mg/dL AST (15-37) U/L ALT (10-53) U/L Alkaline Phosphatase (45-117) U/L Total Creatine Kinase (26-192) U/L Troponin I (0.02-0.05) ng/mL Total Protein (6.4-8.2) g/dL Albumin (3.4-5.0) g/dL Imaging Data Radiologist's impression: Chest X-Ray 09/02/18 20:19 CONCLUSION: No acute cardiopulmonary disease. ECG Data EKG Prior to Arrival: No Attestation: I personally reviewed and interpreted this ECG as follows: (EKG shows a sinus rhythm with a rate of 102. Poor R wave progression. No acute ST T wave changes.) Discharge Plan Discharge Disposition Patient Disposition: ED Admit(ED Internal Use Only) Discharge Condition Condition: Stable Discharge Order Discharge Orders: ED Use Only Admit Order (Routine); Ordered 09/02/18 Ordered By: Lay Franklin Discharge Details Diagnosis: COPD with acute exacerbation, Chronic respiratory acidosis, Respiratory failure Physicians Team ED Provider: Lauren Rosenberg ED Midlevel Provider: Lay Franklin Primary Care Provider: Paula Martin Attending Provider: Tameka Camarena ED Status: Admitted Patient
--- NOTE | 2018-09-02 20:37 | XR ---
EXAM DATE: 09/02/2018 8:32 PM EST AGE/SEX: 62 years / Female INDICATIONS: Shortness of breath. CLINICAL DATA: This is the patient's initial encounter. Patient reports that signs and symptoms have been present for 1 day and indicates a pain score of 0/10. MEDICAL/SURGICAL HISTORY: . Chronic obstructive pulmonary disease. Emphysema. None. COMPARISON: [facility], CHEST 1V SINGLE AP, 05/27/2018. . FINDINGS: The lungs are clear without infiltrate, nodule, or mass. There is no appreciable pleural e ffusion for technique. Heart and mediastinum are unremarkable. CONCLUSION: No acute cardiopulmonary disease. Electronically signed by: Kirsty Milian MD Board Certified Radiologist 09/02/2018 8:35 PM EST
[2018-09-02 20:38] LABS: Baso % (Auto) 0.4 % (0.0-2.0); Eos # (Auto) 0.1 th/mm3 (0.0-0.4); Eos % (Auto) 0.5 % (0.0-4.0); Hematocrit 40.6 % (35.0-46.0); Hemoglobin 13.4 gm/dL (11.6-15.3); Lymph # (Auto) 1.6 th/mm3 (1.0-4.8); Lymph % (Auto) 15.2 % (9.0-44.0); Mean Platelet Volume 8.3 fL (7.0-11.0); Mono % (Auto) 9.1 % (0.0-8.0); Neut # (Auto) 7.9 th/mm3 (1.8-7.7); Neut % (Auto) 74.8 % (16.0-70.0); Platelet Count 187 th/mm3 (150-450); Red Blood Count 4.46 mil/mm3 (4.00-5.30); Red Cell Distribution Width 13.9 % (11.6-17.2); White Blood Count 10.6 th/mm3 (4.0-11.0)
[2018-09-02 20:58] LABS: Alanine Aminotransferase 12 U/L (10-53)
[2018-09-02 21:10] LABS: Alkaline Phosphatase 90 U/L (45-117); Anion Gap 4 meq/L (5-15); Aspartate Aminotransferase 13 U/L (15-37); Blood Urea Nitrogen 7 mg/dL (7-18); Calcium 8.5 mg/dL (8.5-10.1); Carbon Dioxide 35.6 meq/L (21.0-32.0); Chloride 96 meq/L (98-107); Glomerular Filtration Rate Greater Than 89 mL/min (>89); Glucose,Random 106 mg/dL (74-106); Magnesium 1.9 mg/dL (1.5-2.5); Potassium 3.9 meq/L (3.5-5.1); Sodium 136 meq/L (136-145); Total Protein 6.9 g/dL (6.4-8.2)
[2018-09-02 21:18] LABS: Creatine Kinase 34 U/L (26-192)
[2018-09-02] MEDS ORDERED: Magnesium Sulfate Inj 2 GM in Sodium Chlor 0.9% Inj 96 ML IV.SIG PRN (23:01)
[2018-09-02] MEDS ORDERED: Potassium Phosphate Inj 30 MMOL in Sodium Chlor 0.9% Inj 250 ML IV.SIG PRN (23:01)
[2018-09-02] MEDS ORDERED: Potassium Phosphate 500 MG Soluble Tablet PO PRN ×2 (23:01)
[2018-09-02] MEDS ORDERED: Magnesium Oxide 400 MG Tablet PO PRN (23:01)
[2018-09-02] MEDS ORDERED: Potassium Chloride Liq 20 MEQ/15 ML UDC PO PRN ×2 (23:01)
[2018-09-02] MEDS ORDERED: Potassium Chlor 20 mEq Premix 20 MEQ/100 ML PIGGYBACK IV.SIG PRN ×2 (23:01)
[2018-09-02] MEDS ORDERED: Bisacodyl 10 MG Supp RECTAL PRN (23:01)
[2018-09-02] MEDS ORDERED: Magnesium Sulfate Inj 4 GM in Sodium Chlor 0.9% Inj 92 ML IV.SIG PRN (23:01)
[2018-09-02] MEDS ORDERED: Potassium Chlor 40 mEq Premix 40 MEQ/100 ML PIGGYBACK IV.SIG PRN ×2 (23:01)
[2018-09-02] MEDS ORDERED: Sodium Phosphate Inj 30 MMOL in Sodium Chlor 0.9% Inj 250 ML IV.SIG PRN (23:01)
[2018-09-02] MEDS ORDERED: Magnesium Sulfate Inj 2 GM in Sodium Chlor 0.9% Inj 96 ML IV.SIG ONE (23:14)
--- NOTE | 2018-09-02 23:16 | P.HPCC ---
History of Present Illness Service: Critical care Primary Care Physician: Paula Martin Chief Complaint: Respiratory distress History of Present Illness: 62yF brought in to the ED via EMS for shortness of breath and altered mental status. The patient has a history of COPD and is supposed to be on 2L oxygen via nasal cannula around the clock; as per her , her oxygen "fell off" and she complained of worsening shortness of breath. She also appeared confused and sleepy. On EMS arrival, she reportedly had oxygen sats in the 50s on room air. She was placed on bipap on arrival to the ED, was given nebs and steroids, and was awake and alert on my evaluation. The patient says that she's had a productive cough and dyspnea for the past 3-4 days; she has been using her home nebs with minimal relief of symptoms. (+) multiple recent sick contacts at home. History of COPD on multiple inhalers at home, 2L NC around the clock, not on CPAP/ BiPAP, on prednisone 4-5 x per year, multiple previous ICU admissions and intubations in the past, does not routinely follow with a machine specialist, (+) current smoking history. Family history is non-contributory. - Diagnosis (1) CO2 narcosis (2) Tobacco use disorder (3) Acute encephalopathy (4) COPD with acute exacerbation (5) Chronic respiratory acidosis Inpatient Certification: I certify that the inpatient services were ordered in accordance with Medicare regulations governing the order. This includes certification that hospital inpatient services are reasonable and necessary and in the case of services not specified as inpatient-only under 42 CFR 419.22(n), that they are appropriately provided as inpatient services in accordance to with the 2-midnight benchmark under 43 CFR 412.3(e) Estimated Total Length of Stay (Days): 3 Plans for Post Hospital Care: Home Review of Systems All other systems reviewed negative except as stated in HPI Constitutional: Denies fever(s) Eyes: Denies loss of vision Ears, Nose, Mouth, and Throat: Reports nasal congestion Cardiovascular: Denies chest pain Respiratory: Reports cough, Reports wheezing Gastrointestinal: Denies abdominal pain Genitourinary: Denies painful urination Musculoskeletal: Denies back pain Neurologic: Reports confusion Psychiatric: Reports confusion PMF - History History Provided By: Patient, [employer] / EMT - Medical History Medical History: Medical History (Last Reviewed 09/02/18 @ 23:16 by Tameka Camarena DO) Anxiety COPD (chronic obstructive pulmonary disease) Chronic pain - Social History I have reviewed the patient's Social History: Yes - Tobacco History Second Hand Smoke Exposure: No Tobacco Use In Past 30 Days: Yes Smoking Status: Current every day smoker Tobacco Type: Cigarettes - Alcohol History How Often Do You Have a Drink Containing Alcohol: Never - Substance Use History Substance History: No History of Abuse - Travel History Recent Travel in the [place] Within the Last 8 Weeks: No Recent Travel Out of the Country Within the Last 8 Weeks: No - Immunization History Tetanus Immunization: >5 Years Medications and Allergies Active Medications: Active Medications Al Hydroxide/Mg Hydroxide (Milk Of Antoinette Liq) 30 ml PO Q12H PRN PRN Reason: Mild Constipation Albuterol (Duoneb Neb (Prn)) 1 ampul NEB Q4HR NEB PAM Albuterol (Duoneb Neb (Prn)) 1 ampul NEB Q2HR NEB PRN PRN Reason: WHEEZING Alprazolam (Xanax) 1 mg PO BID PAM Bisacodyl (Dulcolax Supp) 10 mg RECTAL DAILY PRN PRN Reason: SEVERE CONSITIPATION Chlorhexidine Gluconate (Chlorhexidine 2% Cloth) 3 pack TOPICAL DAILY@0400 PAM Stop: 09/08/18 03:59 Chlorhexidine Gluconate (Chlorhexidine 2% Cloth) 3 pack TOPICAL DAILY@0400 PRN PRN Reason: Extra cloth needed Stop: 09/08/18 03:59 Enoxaparin Sodium (Lovenox Inj) 40 mg SQ Q24H PAM Famotidine (Pepcid) 20 mg PO BID PAM Famotidine (Pepcid Pf Inj) 20 mg IV.PUSH Q12HR PAM Fluticasone Propionate (Flovent Hfa 44 Mcg Inh) 1 puff INH Q12H APM Magnesium Sulfate 4 gm/ Sodium (Chloride) 100 mls @ 50 mls/hr IV.SIG UNSCH PRN PRN Reason: For Magnesium 0.9 - 1.1 mg/dL Magnesium Sulfate 2 gm/ Sodium (Chloride) 100 mls @ 50 mls/hr IV.SIG UNSCH PRN PRN Reason: For Magnesium 1.2 - 1.6 mg/dL Sodium Chloride (Ns Inj) 1,000 mls @ 84 mls/hr IV.CONT .[id number] PAM Potassium Chloride (Kcl 40 Meq Premix Inj) 40 meq in 100 mls @ 25 mls/hr IV.SIG Q2H PRN PRN Reason: For Potassium 2.8 - 3.2 mEq/L Potassium Chloride (Kcl 20 Meq Premix Inj) 20 meq in 100 mls @ 50 mls/hr IV.SIG Q2H PRN PRN Reason: For Potassium 3.3 - 3.5 mEq/L Potassium Chloride (Kcl 40 Meq Premix Inj) 40 meq in 100 mls @ 25 mls/hr IV.SIG UNSCH PRN PRN Reason: For Potassium 3.3 - 3.5 mEq/L Potassium Chloride (Kcl 20 Meq Premix Inj) 20 meq in 100 mls @ 50 mls/hr IV.SIG Q2H PRN PRN Reason: For Potassium 2.8 - 3.2 mEq/L Potassium Phosphate 30 mmol/ (Sodium Chloride) 260 mls @ 42 mls/hr IV.SIG UNSCH PRN PRN Reason: SEE LABEL COMMENTS Sodium Phosphate 30 mmol/ (Sodium Chloride) 260 mls @ 42 mls/hr IV.SIG UNSCH PRN PRN Reason: For Phosphorus < 2.5 mg/dL Azithromycin 500 mg/ Sodium (Chloride) 250 mls @ 250 mls/hr IV.SIG Q24H PAM Lactulose (Lactulose Liq) 30 ml PO DAILY PRN PRN Reason: SEVERE CONSITIPATION Magnesium Oxide (Mag-Ox) 800 mg PO UNSCH PRN PRN Reason: For Magnesium 1.2 - 1.6 mg/dL Methylprednisolone Sodium Succinate (Solumedrol Inj) 40 mg IV.PUSH Q6H [facility] Ondansetron HCl (Zofran Inj) 4 mg IV.PUSH Q6H PRN PRN Reason: NAUSEA OR VOMITING Potassium Chloride (Kcl Liq) 40 meq PO UNSCH PRN PRN Reason: Potassium level 3.3-3.5 mEq/L Potassium Chloride (Kcl Liq) 40 meq PO UNSCH PRN PRN Reason: POTASSIUM LESS THAN 3.5 Potassium Phosphate (K-Phos Original) 2,000 mg PO Q4H PRN PRN Reason: Phosphorus Less Than 2.5 mg/dL Potassium Phosphate (K-Phos Original) 2,000 mg PO UNSCH PRN PRN Reason: SEE LABEL COMMENTS Senna/Docusate Sodium (Irene-Colace) 1 tab PO BID PAM Sennosides (Senokot) 17.2 mg PO Q12H PRN PRN Reason: Moderate Constipation Sodium Chloride (Ns Flush) 2 ml IV.FLUSH BID PAM Sodium Chloride (Ns Flush) 2 ml IV.FLUSH PRN PRN PRN Reason: FLUSH AFTER USING IV ACCESS Allergies Allergy/AdvReac Type Severity Reaction Status Date / Time meperidine Allergy Severe Nausea/Vomi Verified 08/05/18 12:09 ting acetaminophen Allergy Intermediate Nausea/Vomi Verified 08/05/18 12:09 ting propoxyphene Allergy Intermediate Nausea/Vomi Verified 08/05/18 12:09 ting Home Medications Medication Instructions Recorded Confirmed Type albuterol sulfate 2.5 mg INHALATION Q4H PRN 05/27/18 09/02/18 History albuterol sulfate [ProAir HFA] 1 puff INHALATION Q4-6H PRN 05/27/18 09/02/18 History alprazolam 1 mg PO BID 05/27/18 09/02/18 History fluticasone [Flovent HFA] 1 inh INHALATION Q12H 05/27/18 09/02/18 History zolpidem 5 mg PO HS 05/27/18 09/02/18 History tramadol 50 mg PO TID 09/02/18 09/02/18 History Results - Labs CBC & Chem 7: 09/02/18 20:18 09/02/18 20:18 Labs: Short CBC 09/02/18 Range/Units 20:18 WBC 10.6 (4.0-11.0) th/mm3 Hgb 13.4 (11.6-15.3) gm/dL Hct 40.6 (35.0-46.0) % Plt Count 187 (150-450) th/mm3 BMP 09/02/18 20:18 Sodium 136 Potassium 3.9 Chloride 96 L Carbon Dioxide 35.6 H BUN 7 Creatinine 0.49 L Calcium 8.5 Cardiac Enzymes 09/02/18 Range/Units 20:18 Total Creatine Kinase 34 (26-192) U/L Troponin I Less than 0.02 L (0.02-0.05) ng/mL Liver Function 09/02/18 Range/Units 20:18 Total Bilirubin 0.3 (0.2-1.0) mg/dL AST 13 L (15-37) U/L ALT 12 (10-53) U/L Alkaline Phosphatase 90 (45-117) U/L Albumin 3.0 L (3.4-5.0) g/dL - Imaging Impressions Chest X-Ray 09/02/18 20:19 CONCLUSION: No acute cardiopulmonary disease. Exam Vital signs: Vital Signs 09/02/18 20:00 09/02/18 20:05 09/02/18 20:12 Temperature 99.2 F Pulse Rate 112 H Respiratory Rate 22 Blood Pressure 114/73 Pulse Oximetry 89 L 89 L 88 L 09/02/18 20:15 09/02/18 20:16 09/02/18 20:30 Temperature Pulse Rate 110 H Respiratory Rate 24 Blood Pressure Pulse Oximetry 84 L 90 L 09/02/18 21:34 09/02/18 22:54 09/02/18 23:04 Temperature Pulse Rate 90 87 Respiratory Rate 22 24 Blood Pressure 122/63 104/64 Pulse Oximetry 92 L 93 L 93 L Intake & Output 09/02/18 09/02/18 09/03/18 06:59 18:59 06:59 Weight 43.091 kg Narrative: GEN: Frail appearing female sitting up in bed, bipap in use, no acute distress HEENT: NCAT, PERRL NECK: Trachea midline CARDIO: Regular rate and rhythm PULM: Diminished at bases bilaterally, no wheezing or rhonchi, mildly tachypneic , speaking in complete sentences ABD/GI: Soft, non-tender in all quadrants EXT/MSK: No peripheral edema SKIN: Warm and well-perfused, no rashes or lesions NEURO: Awake, oriented to person and place but not time, answers most questions appropriately, moves all extremities PSYCH: Calm, no current agitation Caprini VTE Risk Assessment Caprini VTE Risk Assessment: Moderate/High Risk (score >= 2) Caprini Risk Assessment Model: Point Value = 1 Point Value = 2 Point Value = 3 Point Value = 5 Age 41-60 Minor surgery BMI > 25 kg/m2 Swollen legs Varicose veins or History of unexplained or recurrent spontaneous Oral contraceptives or hormone replacement Sepsis (< 1 month) Serious lung disease, including pneumonia (< 1 month) Abnormal pulmonary function Acute myocardial infarction Congestive heart failure (< 1 month) History of inflammatory bowel disease Medical patient at bed rest Age 61-74 Arthroscopic surgery Major open surgery (> 45 min) Laparoscopic surgery (> 45 min) Malignancy Confined to bed (> 72 hours) Immobilizing plaster cast Central venous access Age >= 75 History of VTE Family history of VTE Factor V Leiden Prothrombin [id number] Lupus anticoagulant Anticardiolipin antibodies Elevated serum homocysteine Heparin-induced thrombocytopenia Other congenital or acquired thrombophilia Stroke (< 1 month) Elective arthroplasty Hip, pelvis, or leg fracture Acute spinal cord injury (< 1 month) Prophylaxis Regimen: Total Risk Factor Score Risk Level Prophylaxis Regimen 0-1 Low Early ambulation 2 Moderate Order ONE of the following: *Sequential Compression Device (SCD) *Heparin 5000 units SQ BID 3-4 Higher Order ONE of the following medications: *Heparin 5000 units SQ TID *Enoxaparin/Lovenox 40 mg SQ daily (WT < 150 kg, CrCl > 30 mL/min) *Enoxaparin/Lovenox 30 mg SQ daily (WT < 150 kg, CrCl > 10-29 mL/min) *Enoxaparin/Lovenox 30 mg SQ BID (WT < 150 kg, CrCl > 30 mL/min) AND/OR *Sequential Compression Device (SCD) 5 or more Highest Order ONE of the following medications: *Heparin 5000 units SQ TID (Preferred with Epidurals) *Enoxaparin/Lovenox 40 mg SQ daily (WT < 150 kg, CrCl > 30 mL/min) *Enoxaparin/Lovenox 30 mg SQ daily (WT < 150 kg, CrCl > 10-29 mL/min) *Enoxaparin/Lovenox 30 mg SQ BID (WT < 150 kg, CrCl > 30 mL/min) AND *Sequential Compression Device (SCD) Assessment and Plan - Problem List (1) CO2 narcosis Code(s): R06.89 - Other abnormalities of breathing Status: Acute (2) Tobacco use disorder Code(s): F17.200 - Nicotine dependence, unspecified, uncomplicated Status: Acute (3) Acute encephalopathy Code(s): G93.40 - Encephalopathy, unspecified Status: Acute (4) COPD with acute exacerbation Code(s): J44.1 - Chronic obstructive pulmonary disease with (acute) exacerbation Status: Acute (5) Chronic respiratory acidosis Code(s): E87.2 - Acidosis Status: Acute - Assessment and Plan Plan: 62yF presenting with COPD exacerbation, acute encephalopathy secondary to CO2 narcosis, acute hypoxic and hypercarbic respiratory failure requiring bipap NEURO: Acute encephalopathy CO2 narcosis -Frequent neuro checks -Mental status overall improved since arrival to ED CARDIO: -No active issues PULM: Acute COPD exacerbation Acute hypoxic and hypercarbic respiratory failure requiring bipap Chronic CO2 retention Tobacco use disorder -Repeat ABG on bipap essentially unchanged from earlier (7.28/ 76.4/ 63.1/ 35.2 / 8.6) but mentation improved -Continue bipap overnight and check ABG in AM, increase from 10/5 to 12/5 -Nebs, steroids -Will also give a dose of mag sulfate now for smooth muscle relaxation -Nicotine patch, counseled patient on importance of smoking cessation -CXR showed no obvious infiltrate but will start empiric azithromycin/ ceftriaxone given acute COPD exacerbation F/E/N: -NPO while on bipap -Maintenance fluids -ICU electrolyte protocol ID: -Empiric antibiotics for CAP as outlined above -Send blood cultures and lactate PROPHY: -SCDs, lovenox -PPI OVERALL: This patient is critically ill and requires ICU level of care. She is at high risk for deterioration. Counseling/ Coordination of Care: This patient is critically ill with impairment of one or more vital organ systems with a high probability of imminent or life-threatening deterioration. High-complexity medical decision making was required to support vital organ function and/ or prevent deterioration of the patient's condition. Total critical care time spent is 42 minutes giving full attention to this patient. This includes examining the patient, gathering history from someone other than the patient (i.e. chart review), discussing the patient's care with other providers, managing the patient's bipap settings, ordering and interpreting radiologic studies, ordering and interpreting laboratory values, re -evaluation at frequent intervals, and documentation. Amount of time is separate from teaching, counseling the patient and/or family, and exclusive of procedures. Code Status: Full
[2018-09-02 23:48] LABS: ABG Base Excess 8.6 mmol/L (-2-2); ABG PCO2 76 mmHg (38-42); ABG PO2 63 mmHg (61-120)
[2018-09-03] MEDS: Enoxaparin Inj 40 MG/0.4 ML Syringe SQ SCH ×2 (00:24→23:43)
[2018-09-03] MEDS: Sod Chloride 0.9% Inj 1,000 ML IV.CONT SCH ×2 (00:30→17:33)
[2018-09-03] MEDS: Azithromycin Inj 500 MG in Sodium Chlor 0.9% Inj 250 ML IV.SIG SCH ×2 (00:34→23:42)
[2018-09-03] MEDS: MethylPREDNISolone Sod Succinate Inj 40 MG/ML Vial IV.PUSH SCH ×4 (01:44→20:33)
[2018-09-03] MEDS: Chlorhexidine Gluconate 2% 1 Pack (2 Cloths) TOPICAL SCH (03:39)
[2018-09-03] MEDS ORDERED: Chlorhexidine Gluconate 2% 1 Pack (2 Cloths) TOPICAL PRN (04:00)
[2018-09-03 04:32] LABS: Baso % (Auto) 0.2 % (0.0-2.0); Hematocrit 39.7 % (35.0-46.0); Hemoglobin 12.8 gm/dL (11.6-15.3); Lymph # (Auto) 0.3 th/mm3 (1.0-4.8); Lymph % (Auto) 4.4 % (9.0-44.0); Mean Corpuscular HGB Conc 32.3 % (32.0-36.0); Mean Corpuscular Hemoglobin 29.5 pg (27.0-34.0); Mean Corpuscular Volume 91.3 fL (80.0-100.0); Mean Platelet Volume 8.5 fL (7.0-11.0); Mono # (Auto) 0.1 th/mm3 (0.0-0.9); Mono % (Auto) 1.3 % (0.0-8.0); Neut # (Auto) 7.2 th/mm3 (1.8-7.7); Neut % (Auto) 94.1 % (16.0-70.0); Platelet Count 197 th/mm3 (150-450); Red Blood Count 4.35 mil/mm3 (4.00-5.30); Red Cell Distribution Width 13.9 % (11.6-17.2); White Blood Count 7.7 th/mm3 (4.0-11.0)
[2018-09-03 04:54] LABS: Anion Gap 5 meq/L (5-15); Blood Urea Nitrogen 8 mg/dL (7-18); Calcium 8.1 mg/dL (8.5-10.1); Carbon Dioxide 35.9 meq/L (21.0-32.0); Chloride 99 meq/L (98-107); Glomerular Filtration Rate Greater Than 89 mL/min (>89); Glucose,Random 141 mg/dL (74-106); Magnesium 2.9 mg/dL (1.5-2.5); Potassium 4.3 meq/L (3.5-5.1); Sodium 140 meq/L (136-145)
[2018-09-03 05:13] LABS: ABG Base Excess 8.1 mmol/L (-2-2); ABG PCO2 70 mmHg (38-42); ABG PO2 80 mmHG (61-120)
--- NOTE | 2018-09-03 07:06 | P.PNCC ---
Subjective Subjective Remarks/Hospital Course: 62yF brought in to the ED via EMS for shortness of breath and altered mental status. The patient has a history of COPD and is supposed to be on 2L oxygen via nasal cannula around the clock; as per her , her oxygen "fell off" and she complained of worsening shortness of breath. She also appeared confused and sleepy. On EMS arrival, she reportedly had oxygen sats in the 50s on room air. She was placed on bipap on arrival to the ED, was given nebs and steroids, and was awake and alert on my evaluation. The patient says that she's had a productive cough and dyspnea for the past 3-4 days; she has been using her home nebs with minimal relief of symptoms. (+) multiple recent sick contacts at home. 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 Family history is non-contributory. Subjective 09/03: Remains on BiPAP 15/5 at 50%. Requesting the mass to be removed. Requesting benzodiazepines. PCO2 down to 70. Objective Vital Signs / I&O: Vital Signs 09/02/18 20:00 09/02/18 20:05 09/02/18 20:12 Temperature 99.2 F Pulse Rate 112 H Respiratory Rate 22 Blood Pressure 114/73 Pulse Oximetry 89 L 89 L 88 L 09/02/18 20:15 09/02/18 20:16 09/02/18 20:30 Temperature Pulse Rate 110 H Respiratory Rate 24 Blood Pressure Pulse Oximetry 84 L 90 L 09/02/18 21:34 09/02/18 22:54 09/02/18 23:04 Temperature Pulse Rate 90 87 Respiratory Rate 22 24 Blood Pressure 122/63 104/64 Pulse Oximetry 92 L 93 L 93 L 09/02/18 23:15 09/02/18 23:41 09/03/18 00:05 Temperature Pulse Rate 85 Respiratory Rate 22 Blood Pressure Pulse Oximetry 94 L 93 L 09/03/18 00:31 09/03/18 01:00 09/03/18 02:00 Temperature 97.7 F Pulse Rate 84 86 Respiratory Rate 13 17 Blood Pressure 94/56 L 92/56 L Pulse Oximetry 95 95 95 09/03/18 03:00 09/03/18 04:00 09/03/18 04:25 Temperature 97.9 F Pulse Rate 84 84 84 Respiratory Rate 17 17 13 Blood Pressure 101/63 98/61 L Pulse Oximetry 94 L 95 09/03/18 04:27 09/03/18 05:00 09/03/18 05:21 Temperature Pulse Rate 82 Respiratory Rate 13 Blood Pressure 106/68 Pulse Oximetry 95 94 L 95 Intake & Output 09/02/18 09/03/18 09/03/18 18:59 06:59 18:59 Intake Total 350 / 350 Balance 350 / 350 Weight 40.2 kg Intake: IV 350 / 350 Azithromycin Inj 500 MG In NS 250 / 250 Inj 250 ML @ 250 mls/hr IV.SIG Q24H PAM Rx#:[id number] Rocephin Inj 1,000 MG In NS Inj 100 / 100 100 ML @ 200 mls/hr IV.SIG Q12H PAM Rx#:[id number] Other: Weight On Admission 40 kg Result Diagrams: 09/03/18 03:45 09/03/18 03:45 Other Results: Microbiology 09/02/18 20:18 Nasal Wash Influenza Types A,B Antigen - Final Negative for FLU A and B antigen Infection due to influenza A or B cannot be ruled out since the antigen present in the sample may be below the detection limit of the test. Imaging: Chest X-Ray 09/02/18 20:19 CONCLUSION: No acute cardiopulmonary disease. Objective Remarks: GENERAL: 62-year-old female resting in bed on BiPAP SKIN: Warm and dry. HEAD: Atraumatic. Normocephalic. EYES: Pupils equal and round. No scleral icterus. No injection or drainage. ENT: No nasal bleeding or discharge. Mucous membranes pink and moist. NECK: Trachea midline. No JVD. CARDIOVASCULAR: Regular rate and rhythm. RESPIRATORY: No accessory muscle use. Clear to auscultation. Breath sounds equal bilaterally. GASTROINTESTINAL: Abdomen soft, non-tender, nondistended. Hepatic and splenic margins not palpable. MUSCULOSKELETAL: Extremities without clubbing, cyanosis, or edema. No obvious deformities. NEUROLOGICAL: Awake and alert. No obvious cranial nerve deficits. Motor grossly within normal limits. Five out of 5 muscle strength in the arms and legs. Normal speech. PSYCHIATRIC: Appropriate mood and affect; insight and judgment normal. Assessment and Plan - Assessment and Plan Plan: NEURO/PSYCH: Acute toxic metabolic encephalopathy secondary to encephalopathy CO2 narcosis Chronic benzodiazepine use Chronic tramadol use -Frequent neuro checks -Mental status overall improved since arrival to ED -Currently on alprazolam 1 mg twice daily/home medication for anxiety -patient is on tramadol 50 mg 3 times daily at home for pain management CARDIO: -No active issues. Not requiring vasopressors and/or antihypertensives -Currently on 0.9% NaCl at 84 cc an hour PULM: Acute hypoxic and hypercarbic respiratory failure secondary to acute COPD exacerbation Chronic CO2 retention Tobacco use disorder -Currently on BiPAP 15/5 at 50%. Last PCO2 was 70 -Albuterol/ipratropium aerosols every 4 hours with albuterol aerosols every 2 hours as needed dyspnea -Is on fluticasone 44 by Inhalation twice daily at home. We will place on furosemide 0.5/2 1 inhalation twice daily -Methylprednisolone succinate 40 mg IV every 6 hours -Nicotine patch 14 mg daily, counseled patient on importance of smoking cessation self cessation education booklet provided -CXR on admission showed no obvious infiltrate but will start empiric azithromycin/ ceftriaxone given acute COPD exacerbation GI/F/E/N: Hypoalbuminemia Hyper magnesium -NPO while on bipap. Advance today to clear liquid -Maintenance fluids with 0.9% NaCl at 84 cc an hour -ICU electrolyte protocol ID: -Empiric antibiotics for CAP as outlined above including ceftriaxone and azithromycin day #2 -Send blood cultures and lactate are noted influenza a and B-. Sputum pending HEME: CBC within normal limits No indication for transfusion of blood products at this time. ENDO: Sliding scale insulin with Accu-Cheks every 6 hours maintain euglycemia while on steroids PROPHY: -SCDs, enoxaparin -Famotidine Level 2 follow-up Code Status: Full code
[2018-09-03] MEDS ORDERED: Dextrose 50% in Water 50 ML Vial IV.PUSH PRN (07:08)
[2018-09-03] MEDS: Famotidine 20 MG Tablet PO SCH ×2 (08:05→20:33)
[2018-09-03] MEDS: Senna/Docusate Sodium 8.6/50 MG Tablet PO SCH ×2 (08:06→23:19)
[2018-09-03] MEDS ORDERED: Famotidine PF Inj 20 MG/2 ML Vial IV.PUSH SCH (09:00)
[2018-09-03] MEDS ORDERED: Influenza (Quadrivalent) Vaccine 0.5 ML Syringe IM ONE (09:00)
[2018-09-03] MEDS: Insulin NovoLOG Aspart Correctional Sugar Inj SQ SCH ×2 (12:32→19:16)
[2018-09-03] MEDS ORDERED: ALPRAZolam 0.5 MG Tablet PO ONE (17:30)
--- NOTE | 2018-09-03 21:07 | ECG ---
Date Performed: 09/02/2018 Time Performed: 20:56:08 PTAGE: 62 years EKG: SINUS TACHYCARDIA RIGHT ATRIAL ENLARGEMENT ABNORMAL ECG PREVIOUS TRACING : 05/27/2018 11.00 Since the previous tracing, no significant change noted DOCTOR: Lois Lawson Interpretating Date/Time 09/03/2018 21:06:28
[2018-09-04] MEDS: Sod Chloride 0.9% Inj 1,000 ML IV.CONT SCH ×3 (00:24→23:26)
[2018-09-04] MEDS: Insulin NovoLOG Aspart Correctional Sugar Inj SQ SCH ×4 (00:24→17:23)
[2018-09-04] MEDS: MethylPREDNISolone Sod Succinate Inj 40 MG/ML Vial IV.PUSH SCH ×4 (02:30→20:14)
[2018-09-04] MEDS: Chlorhexidine Gluconate 2% 1 Pack (2 Cloths) TOPICAL SCH (03:28)
[2018-09-04 05:42] LABS: ABG Base Excess 6.7 mmol/L (-2-2); ABG PCO2 58 mmHg (38-42); ABG PO2 51 mmHG (61-120)
--- NOTE | 2018-09-04 06:12 | XR ---
EXAM DATE: 09/04/2018 5:45 AM EST AGE/SEX: 62 years / Female INDICATIONS: Respiratory distress. CLINICAL DATA: This is the patient's subsequent encounter. Patient reports that signs and symptoms h ave been present for 4 - 6 days and indicates a pain score of 0/10. MEDICAL/SURGICAL HISTORY: Chronic obstructive pulmonary disease. Emphysema. None. [place] [facility] [place]. . FINDINGS: A single AP view of the chest demonstrates interval development of patchy consolidation within both l alison bases most pronounced within the medial left base. No effusions. Top normal heart size. A scoliot ic curvature to the spine. CONCLUSION: Developing bibasilar consolidations. Electronically signed by: Mario Thomas MD Board Certified Radiologist 09/04/2018 6:10 AM EST
[2018-09-04 06:39] LABS: Baso % (Auto) 0.2 % (0.0-2.0); Hematocrit 36.4 % (35.0-46.0); Hemoglobin 11.5 gm/dL (11.6-15.3); Lymph # (Auto) 0.7 th/mm3 (1.0-4.8); Lymph % (Auto) 4.9 % (9.0-44.0); Mean Corpuscular HGB Conc 31.5 % (32.0-36.0); Mean Corpuscular Hemoglobin 28.3 pg (27.0-34.0); Mean Corpuscular Volume 89.8 fL (80.0-100.0); Mean Platelet Volume 8.3 fL (7.0-11.0); Mono # (Auto) 0.5 th/mm3 (0.0-0.9); Mono % (Auto) 3.8 % (0.0-8.0); Neut # (Auto) 12.9 th/mm3 (1.8-7.7); Neut % (Auto) 91.1 % (16.0-70.0); Platelet Count 246 th/mm3 (150-450); Red Blood Count 4.06 mil/mm3 (4.00-5.30); Red Cell Distribution Width 13.8 % (11.6-17.2); White Blood Count 14.2 th/mm3 (4.0-11.0)
[2018-09-04 07:03] LABS: Alanine Aminotransferase 9 U/L (10-53); Albumin 2.7 g/dL (3.4-5.0); Alkaline Phosphatase 81 U/L (45-117); Anion Gap 6 meq/L (5-15); Aspartate Aminotransferase 7 U/L (15-37); Blood Urea Nitrogen 8 mg/dL (7-18); Carbon Dioxide 31.7 meq/L (21.0-32.0); Chloride 104 meq/L (98-107); Glomerular Filtration Rate Greater Than 89 mL/min (>89); Glucose,Random 88 mg/dL (74-106); Potassium 4.1 meq/L (3.5-5.1); Sodium 142 meq/L (136-145); Total Protein 6.3 g/dL (6.4-8.2)
--- NOTE | 2018-09-04 08:48 | P.PNIM ---
Subjective Interval history: Patient seen and examined this morning. Afebrile, pulse 98, respiratory rate 20 , pulse ox 93 on 5 L nasal cannula, blood pressure 121/79. Sitting up in bed talking in complete sentences. Only requiring nasal cannula. Mostly just concerned about her alprazolam and is requesting a more frequent regimen. Denies any severe chest pain or shortness of breath. Physical Exam Vital signs: Vital Signs 09/03/18 09:00 09/03/18 09:30 09/03/18 10:00 Temperature Pulse Rate 97 H 94 H 92 H Respiratory Rate 20 34 H 20 Blood Pressure 97/58 L 119/69 100/60 Pulse Oximetry 95 88 L 99 09/03/18 10:56 09/03/18 11:00 09/03/18 11:30 Temperature Pulse Rate 86 85 96 H Respiratory Rate 20 15 30 H Blood Pressure 94/60 L 115/63 Pulse Oximetry 96 88 L 09/03/18 12:00 09/03/18 12:30 09/03/18 13:00 Temperature Pulse Rate 93 H 96 H 92 H Respiratory Rate 23 38 H 17 Blood Pressure 108/63 109/64 105/67 Pulse Oximetry 96 86 L 93 L 09/03/18 13:30 09/03/18 14:00 09/03/18 14:30 Temperature Pulse Rate 90 95 H 96 H Respiratory Rate 20 24 27 H Blood Pressure 99/63 L 95/69 L 112/67 Pulse Oximetry 92 L 90 L 95 09/03/18 15:00 09/03/18 15:23 09/03/18 15:30 Temperature Pulse Rate 100 H 98 H 95 H Respiratory Rate 24 20 27 H Blood Pressure 121/65 101/65 Pulse Oximetry 94 L 98 09/03/18 16:00 09/03/18 16:30 09/03/18 17:00 Temperature Pulse Rate 103 H 104 H 100 H Respiratory Rate 24 21 15 Blood Pressure 111/65 118/71 112/70 Pulse Oximetry 92 L 96 97 09/03/18 17:30 09/03/18 18:00 09/03/18 19:00 Temperature Pulse Rate 106 H 108 H 101 H Respiratory Rate 21 22 18 Blood Pressure 114/75 110/75 116/73 Pulse Oximetry 96 90 L 93 L 09/03/18 19:56 09/03/18 20:00 09/03/18 20:15 Temperature 98.8 F Pulse Rate 103 H 100 H Respiratory Rate 20 21 Blood Pressure 111/71 Pulse Oximetry 94 L 94 L 95 09/03/18 21:00 09/03/18 22:00 09/03/18 23:00 Temperature Pulse Rate 110 H 108 H 102 H Respiratory Rate 20 19 14 Blood Pressure 118/71 113/68 107/63 Pulse Oximetry 93 L 91 L 92 L 09/03/18 23:33 09/04/18 00:00 09/04/18 00:15 Temperature 98.9 F Pulse Rate 99 H 108 H 108 H Respiratory Rate 14 18 Blood Pressure 121/72 Pulse Oximetry 90 L 09/04/18 01:00 09/04/18 02:00 09/04/18 02:15 Temperature Pulse Rate 104 H 102 H 102 H Respiratory Rate Blood Pressure 108/66 98/56 L Pulse Oximetry 94 L 94 L 09/04/18 03:00 09/04/18 04:00 09/04/18 04:15 Temperature 98.2 F Pulse Rate 100 H 94 H Respiratory Rate 13 14 18 Blood Pressure 95/56 L 96/58 L Pulse Oximetry 93 L 93 L 09/04/18 05:00 09/04/18 06:00 09/04/18 06:15 Temperature Pulse Rate 105 H 103 H 103 H Respiratory Rate 20 22 Blood Pressure 96/62 L 121/79 Pulse Oximetry 98 100 09/04/18 07:26 Temperature Pulse Rate 98 H Respiratory Rate 20 Blood Pressure Pulse Oximetry 93 L Intake & Output 09/03/18 09/04/18 09/04/18 18:59 06:59 18:59 Intake Total 1100 / 1100 1950 / 1950 Output Total 350 / 350 Balance 1100 / 1100 1600 / 1600 Weight 40.7 kg Intake: IV 1100 / 1100 1350 / 1350 NS Inj 1,000 ML @ 84 mls/hr IV. 1000 / 1000 1000 / 1000 CONT .[id number] PAM Rx#:[id number] Azithromycin Inj 500 MG In NS 250 / 250 Inj 250 ML @ 250 mls/hr IV.SIG Q24H PAM Rx#:[id number] Rocephin Inj 1,000 MG In NS Inj 100 / 100 100 / 100 100 ML @ 200 mls/hr IV.SIG Q12H PAM Rx#:[id number] Oral 600 / 600 Output: Urine 350 / 350 Narrative: GEN: Well-developed, thin female patient. No acute distress. CV: Regular rate and rhythm without obvious murmurs LUNGS: Clear to auscultation bilaterally. Normal respiratory effort. Small amount of expiratory wheezing GI: Soft, nontender, nondistended. No palpable masses. Bowel sounds WNL. EXT: No edema. NEURO/PSYCH: Afocal. Awake, alert, and oriented x3. Appropriate insight and judgment. Results - Labs CBC & Chem 7: 09/04/18 06:19 09/04/18 06:19 Laboratory Results - last 24 hr 09/03/18 09/03/18 09/04/18 13:04 17:48 05:28 WBC RBC Hgb Hct MCV MCH MCHC RDW Plt Count MPV Neut % (Auto) Lymph % (Auto) Divide % (Auto) Eos % (Auto) Baso % (Auto) Neut # (Auto) Lymph # (Auto) Divide # (Auto) Eos # (Auto) Baso # (Auto) WBC Differential Differential Comment Puncture Site Right radial Patient Temperature 98.6 O2 Saturation 85 L* ABG pH 7.36 L ABG pCO2 58 H* ABG pO2 51 L* ABG HCO3 32 H ABG O2 Content 13.5 ABG Base Excess 6.7 H ABG Methemoglobin 1.4 Gsu Test Present Hemoglobin 11.3 L Carboxyhemoglobin 0.9 O2 Delivery Device Nasal cannula Liter Flow 4.00 Critical Value Yes Sodium Potassium Chloride Carbon Dioxide Anion Gap BUN Creatinine Estimated GFR POC Glucose 241 H 122 H Random Glucose Calcium Phosphorus Magnesium Total Bilirubin AST ALT Alkaline Phosphatase Total Protein Albumin 09/04/18 09/04/18 09/04/18 05:47 06:19 06:19 WBC 14.2 H RBC 4.06 Hgb 11.5 L Hct 36.4 MCV 89.8 MCH 28.3 MCHC 31.5 L RDW 13.8 Plt Count 246 MPV 8.3 Neut % (Auto) 91.1 H Lymph % (Auto) 4.9 L Divide % (Auto) 3.8 Eos % (Auto) 0.0 Baso % (Auto) 0.2 Neut # (Auto) 12.9 H Lymph # (Auto) 0.7 L Divide # (Auto) 0.5 Eos # (Auto) 0.0 Baso # (Auto) 0.0 WBC Differential . Differential Comment Auto diff final Puncture Site Patient Temperature O2 Saturation ABG pH ABG pCO2 ABG pO2 ABG HCO3 ABG O2 Content ABG Base Excess ABG Methemoglobin Gus Test Hemoglobin Carboxyhemoglobin O2 Delivery Device Liter Flow Critical Value Sodium 142 Potassium 4.1 Chloride 104 Carbon Dioxide 31.7 Anion Gap 6 BUN 8 Creatinine 0.46 L Estimated GFR Greater than 89 POC Glucose 95 Random Glucose 88 Calcium 8.0 L Phosphorus 2.0 L Magnesium 2.0 D Total Bilirubin 0.1 L AST 7 L ALT 9 L Alkaline Phosphatase 81 Total Protein 6.3 L D Albumin 2.7 L 09/04/18 07:37 WBC RBC Hgb Hct MCV MCH MCHC RDW Plt Count MPV Neut % (Auto) Lymph % (Auto) Divide % (Auto) Eos % (Auto) Baso % (Auto) Neut # (Auto) Lymph # (Auto) Divide # (Auto) Eos # (Auto) Baso # (Auto) WBC Differential Differential Comment Puncture Site Patient Temperature O2 Saturation ABG pH ABG pCO2 ABG pO2 ABG HCO3 ABG O2 Content ABG Base Excess ABG Methemoglobin Gus Test Hemoglobin Carboxyhemoglobin O2 Delivery Device Liter Flow Critical Value Sodium Potassium Chloride Carbon Dioxide Anion Gap BUN Creatinine Estimated GFR POC Glucose 112 H Random Glucose Calcium Phosphorus Magnesium Total Bilirubin AST ALT Alkaline Phosphatase Total Protein Albumin Microbiology 09/02/18 23:15 Blood - Peripheral Aerobic Blood Culture - Preliminary No growth in 1 day 09/02/18 23:15 Blood - Peripheral Anaerobic Blood Culture - Preliminary No growth in 1 day 09/02/18 23:00 Blood - Peripheral Aerobic Blood Culture - Preliminary No growth in 1 day 09/02/18 23:00 Blood - Peripheral Anaerobic Blood Culture - Preliminary No growth in 1 day - Imaging Impressions Chest X-Ray 09/04/18 06:00 CONCLUSION: Developing bibasilar consolidations. Assessment and Plan - Assessment (1) Respiratory failure with hypercapnia Code(s): J96.92 - Respiratory failure, unspecified with hypercapnia Status: Resolved (2) COPD with acute exacerbation Code(s): J44.1 - Chronic obstructive pulmonary disease with (acute) exacerbation Status: Acute - Plan This is a 62-year-old female with past medical history significant for COPD, anxiety, chronic pain syndrome. Admitted for COPD exacerbation 1. COPD exacerbation -Continue methylprednisolone -Continue BiPAP at night -Continue nasal cannula titrate as needed, at home on baseline requires 2 L -Antibiotics per protocol: Azithromycin, ceftriaxone 2. Smoking addiction -Nicotine patch 3. Chronic pain syndrome -Continue tramadol 4. Generalized anxiety -Continue her alprazolam 5. Insomnia -Restarted zolpidem Monitor electrolytes replace accordingly Regular diet Physical therapy consult Code Status: Awaiting further medical stability prior to discharge, still requiring large quantities of oxygen
[2018-09-04] MEDS: Senna/Docusate Sodium 8.6/50 MG Tablet PO SCH ×2 (09:29→20:48)
[2018-09-04] MEDS: Famotidine 20 MG Tablet PO SCH ×2 (09:29→20:49)
[2018-09-04] MEDS ORDERED: Influenza (Quadrivalent) Vaccine 0.5 ML Syringe IM ONE (21:30)
[2018-09-04] MEDS: Azithromycin Inj 500 MG in Sodium Chlor 0.9% Inj 250 ML IV.SIG SCH (23:23)
[2018-09-04] MEDS: Zolpidem Tartrate 5 MG Tablet PO SCH (23:23)
[2018-09-04] MEDS: Enoxaparin Inj 40 MG/0.4 ML Syringe SQ SCH (23:26)
[2018-09-05] MEDS: Insulin NovoLOG Aspart Correctional Sugar Inj SQ SCH ×5 (01:37→23:53)
[2018-09-05] MEDS: MethylPREDNISolone Sod Succinate Inj 40 MG/ML Vial IV.PUSH SCH ×3 (02:38→12:59)
[2018-09-05] MEDS: Chlorhexidine Gluconate 2% 1 Pack (2 Cloths) TOPICAL SCH (06:06)
[2018-09-05] MEDS: Famotidine 20 MG Tablet PO SCH ×2 (08:48→20:44)
[2018-09-05] MEDS: Senna/Docusate Sodium 8.6/50 MG Tablet PO SCH ×2 (08:57→20:44)
[2018-09-05] MEDS ORDERED: Influenza (Quadrivalent) Vaccine 0.5 ML Syringe IM ONE (09:00)
[2018-09-05] MEDS: Sod Chloride 0.9% Inj 1,000 ML IV.CONT SCH (10:25)
[2018-09-05 10:30] LABS: Hematocrit 36.8 % (35.0-46.0); Mean Corpuscular HGB Conc 32.6 % (32.0-36.0); Mean Corpuscular Hemoglobin 29.3 pg (27.0-34.0); Mean Platelet Volume 8.3 fL (7.0-11.0); Platelet Count 285 th/mm3 (150-450); Red Blood Count 4.09 mil/mm3 (4.00-5.30); Red Cell Distribution Width 14.1 % (11.6-17.2); White Blood Count 14.5 th/mm3 (4.0-11.0)
[2018-09-05 10:54] LABS: Alanine Aminotransferase 21 U/L (10-53); Albumin 2.8 g/dL (3.4-5.0); Anion Gap 3 meq/L (5-15); Aspartate Aminotransferase 24 U/L (15-37); Blood Urea Nitrogen 16 mg/dL (7-18); Calcium 8.4 mg/dL (8.5-10.1); Carbon Dioxide 34.7 meq/L (21.0-32.0); Chloride 102 meq/L (98-107); Glomerular Filtration Rate Greater Than 89 mL/min (>89); Glucose,Random 122 mg/dL (74-106); Sodium 140 meq/L (136-145)
[2018-09-05 10:55] LABS: Alkaline Phosphatase 102 U/L (45-117); Total Protein 6.5 g/dL (6.4-8.2)
--- NOTE | 2018-09-05 15:56 | P.PNIM ---
Subjective Interval history: Follow-up for COPD exacerbation. Patient is currently doing well. Denies any chest pain, fever or chills. She is currently on 3 L of oxygen via nasal cannula. Physical Exam Vital signs: Vital Signs 09/04/18 16:00 09/04/18 19:29 09/04/18 19:40 Temperature 97.6 F 98.0 F Pulse Rate 104 H 98 H 120 H Respiratory Rate 18 16 20 Blood Pressure 124/70 138/75 Pulse Oximetry 90 L 92 L 09/04/18 20:00 09/04/18 23:40 09/05/18 00:00 Temperature 97.7 F Pulse Rate 118 H 112 H 110 H Respiratory Rate 18 20 Blood Pressure 135/82 Pulse Oximetry 97 09/05/18 00:18 09/05/18 00:20 09/05/18 03:40 Temperature 97.7 F Pulse Rate 94 H 95 H Respiratory Rate 16 16 Blood Pressure 129/75 Pulse Oximetry 97 97 09/05/18 03:54 09/05/18 04:00 09/05/18 07:52 Temperature Pulse Rate 66 92 H 100 H Respiratory Rate 17 20 16 Blood Pressure Pulse Oximetry 95 09/05/18 08:00 09/05/18 12:00 09/05/18 12:18 Temperature 98 F 97.9 F Pulse Rate 100 H 112 H 104 H Respiratory Rate 16 17 16 Blood Pressure 145/85 H 154/91 H Pulse Oximetry 96 94 L 09/05/18 15:42 Temperature Pulse Rate 104 H Respiratory Rate 15 Blood Pressure Pulse Oximetry Intake & Output 09/04/18 09/05/18 09/05/18 18:59 06:59 18:59 Intake Total 1340 / 1340 970 / 970 100 / 100 Balance 1340 / 1340 970 / 970 100 / 100 Weight 96.6 kg Intake: IV 1100 / 1100 350 / 350 100 / 100 NS Inj 1,000 ML @ 84 mls/hr IV. 1000 / 1000 CONT .[id number] PAM Rx#:[id number] Azithromycin Inj 500 MG In NS 250 / 250 Inj 250 ML @ 250 mls/hr IV.SIG Q24H PAM Rx#:[id number] Rocephin Inj 1,000 MG In NS Inj 100 / 100 100 / 100 100 / 100 100 ML @ 200 mls/hr IV.SIG Q12H PAM Rx#:[id number] Oral 240 / 240 620 / 620 Other: # Voids 2 Narrative: GENERAL: Well-nourished, well-developed patient. SKIN: Warm and dry. HEAD: Normocephalic. EYES: No scleral icterus. No injection or drainage. NECK: Supple, trachea midline. No JVD or lymphadenopathy. CARDIOVASCULAR: Regular rate and rhythm without murmurs, gallops, or rubs. RESPIRATORY: Moderate air entry, diffuse wheezing appreciated. No accessory muscle use. GASTROINTESTINAL: Abdomen soft, non-tender, nondistended. MUSCULOSKELETAL: No cyanosis, or edema. BACK: Nontender without obvious deformity. No CVA tenderness. Results Labs CBC & Chem 7: 09/05/18 09:50 09/05/18 09:50 Labs: Microbiology 09/02/18 23:15 Blood - Peripheral Aerobic Blood Culture - Preliminary No growth in 3 days 09/02/18 23:15 Blood - Peripheral Anaerobic Blood Culture - Preliminary No growth in 3 days 09/02/18 23:00 Blood - Peripheral Aerobic Blood Culture - Preliminary No growth in 3 days 09/02/18 23:00 Blood - Peripheral Anaerobic Blood Culture - Preliminary No growth in 3 days Assessment and Plan (1) Respiratory failure with hypercapnia: Code(s): J96.92 - Respiratory failure, unspecified with hypercapnia Status: Resolved (2) COPD with acute exacerbation: Code(s): J44.1 - Chronic obstructive pulmonary disease with (acute) exacerbation Status: Acute Plan This is a 62-year-old female with past medical history significant for COPD, anxiety, chronic pain syndrome. Admitted for COPD exacerbation Acute hypoxic and hypercarbic respiratory failure Acute COPD exacerbation Currently on 2-3 L of oxygen via nasal cannula. We will switch azithromycin and ceftriaxone to Levaquin p.o. Discontinue Solu-Medrol and start prednisone 20 mg twice daily Continue DuoNeb scheduled and as needed. -BiPAP at night. Keep O2 via NC to maintain O2 sat > 88%. Tobacco abuse Chronic pain syndrome -Nicotine patch. Patient is counseled -Continue tramadol Generalized anxiety -Continue her alprazolam Insomnia -Restarted zolpidem Full code. Lovenox. Discharge plan: Likely discharge in the morning once patient is on 2-3 L of O2 via NC. Progress Note: Quality VTE Deep Vein Thrombosis/Pulmonary Embolism Present on Admission: No _ (1) Respiratory failure with hypercapnia Qualifiers: Chronicity:
[2018-09-05] MEDS ORDERED: levoFLOXacin 750 MG Tablet PO SCH (17:00)
[2018-09-05] MEDS: Zolpidem Tartrate 5 MG Tablet PO SCH (20:43)
[2018-09-05] MEDS: predniSONE 20 MG Tablet PO SCH (20:44)
[2018-09-05] MEDS: Enoxaparin Inj 40 MG/0.4 ML Syringe SQ SCH (23:43)
[2018-09-06] MEDS: Chlorhexidine Gluconate 2% 1 Pack (2 Cloths) TOPICAL SCH (05:09)
[2018-09-06] MEDS: Insulin NovoLOG Aspart Correctional Sugar Inj SQ SCH (06:01)
[2018-09-06 06:33] VITALS: BP 145/80; TEMP 98
[2018-09-06 08:01] VITALS: PULSE 92; RESP 16; O2SAT 92
[2018-09-06] MEDS: predniSONE 20 MG Tablet PO SCH (08:07)
[2018-09-06] MEDS: Famotidine 20 MG Tablet PO SCH (08:07)
[2018-09-06] MEDS: Senna/Docusate Sodium 8.6/50 MG Tablet PO SCH (08:07)
[2018-09-06] MEDS ORDERED: Budesonide-Formoterol 160/4.5 MCG 6 GM Inhaler INH SCH (09:00)
[2018-09-06] MEDS ORDERED: Pneumococcal-23 Polyvalent Vaccine Inj 25 MCG/0.5 ML Syringe SQ ONE (09:00)
--- NOTE | 2018-09-06 09:23 | P.DS ---
DS: Providers Date of admission: 09/02/18 23:03 Primary care physician: Paula Martin Consults: 09/03/18 14:19 Consult to Hospitalist Routine Consulting Provider: Don Nunez Reason for Consultation: Amite of care in a.m. 09/04 admission with COPD exacerbation Notified:: Service Spoke with:: SHEYLA Date Notified:: 09/03/18 Time Notified:: 14:42 Comments:: WAITING SPONSORSHIP MANAGER BACK Ordering Provider: LONI Brief History from admission: 62yF brought in to the ED via EMS for shortness of breath and altered mental status. The patient has a history of COPD and is supposed to be on 2L oxygen via nasal cannula around the clock; as per her , her oxygen "fell off" and she complained of worsening shortness of breath. She also appeared confused and sleepy. On EMS arrival, she reportedly had oxygen sats in the 50s on room air. She was placed on bipap on arrival to the ED, was given nebs and steroids, and was awake and alert on my evaluation. The patient says that she's had a productive cough and dyspnea for the past 3-4 days; she has been using her home nebs with minimal relief of symptoms. (+) multiple recent sick contacts at home. History of COPD on multiple inhalers at home, 2L NC around the clock, not on CPAP/ BiPAP, on prednisone 4-5 x per year, multiple previous ICU admissions and intubations in the past, does not routinely follow with a ceo and founder, (+) current smoking history. Family history is non-contributory. DS: Diagnosis Discharge Diagnosis (1) Respiratory failure with hypercapnia: Status: Resolved (2) COPD with acute exacerbation: Status: Acute DS: Summary This is a 62-year-old female with past medical history significant for COPD, anxiety, chronic pain syndrome. Admitted for COPD exacerbation Acute hypoxic and hypercarbic respiratory failure Acute COPD exacerbation Currently on 2-3 L of oxygen via nasal cannula. We switched azithromycin and ceftriaxone to Levaquin p.o. Discontinued Solu-Medrol and started prednisone 20 mg twice daily Continue DuoNeb scheduled and as needed. -BiPAP at night. Keep O2 via NC to maintain O2 sat > 88%. Tobacco abuse Chronic pain syndrome -Nicotine patch. Patient is counseled -Continue tramadol Generalized anxiety -Continue her alprazolam Insomnia -Restarted zolpidem Full code. Lovenox. Time Spent with Patient Total time spent providing and/or coordinating discharge services: Greater than 30 minutes Quality: VTE Deep Vein Thrombosis/Pulmonary Embolism Present on Admission: No Exam Narrative Exam Narrative: GENERAL: Well-nourished, well-developed patient. SKIN: Warm and dry. HEAD: Normocephalic. EYES: No scleral icterus. No injection or drainage. NECK: Supple, trachea midline. No JVD or lymphadenopathy. CARDIOVASCULAR: Regular rate and rhythm without murmurs, gallops, or rubs. RESPIRATORY: Moderate air entry, diffuse wheezing appreciated. No accessory muscle use. GASTROINTESTINAL: Abdomen soft, non-tender, nondistended. MUSCULOSKELETAL: No cyanosis, or edema. BACK: Nontender without obvious deformity. No CVA tenderness. Results Labs on day of discharge: Labs from last 24 hours 09/06/18 09/05/18 09/05/18 06:00 23:42 17:10 WBC RBC Hgb Hct MCV MCH MCHC RDW Plt Count MPV Sodium Potassium Chloride Carbon Dioxide Anion Gap BUN Creatinine Estimated GFR POC Glucose 134 H 128 H 109 Random Glucose Calcium Total Bilirubin AST ALT Alkaline Phosphatase Total Protein Albumin 09/05/18 09/05/18 09/05/18 12:30 09:50 09:50 WBC 14.5 H RBC 4.09 Hgb 12.0 Hct 36.8 MCV 90.0 MCH 29.3 MCHC 32.6 RDW 14.1 Plt Count 285 MPV 8.3 Sodium 140 Potassium 4.0 Chloride 102 Carbon Dioxide 34.7 H Anion Gap 3 L BUN 16 Creatinine 0.60 Estimated GFR Greater than 89 POC Glucose 134 H Random Glucose 122 H Calcium 8.4 L Total Bilirubin 0.1 L AST 24 ALT 21 Alkaline Phosphatase 102 Total Protein 6.5 Albumin 2.8 L Preliminary micro results at discharge 09/02/18 23:15 Aerobic Blood Culture - Preliminary Blood - Peripheral No growth in 3 days Anaerobic Blood Culture - Preliminary No growth in 3 days 09/02/18 23:00 Aerobic Blood Culture - Preliminary Blood - Peripheral No growth in 3 days Anaerobic Blood Culture - Preliminary No growth in 3 days Impressions ITS Impressions Chest X-Ray 09/04/18 06:00 CONCLUSION: Developing bibasilar consolidations. Discharge Plan Discharge Disposition Patient Disposition: 01 Discharge Home Discharge Condition Condition: Good Discharge Order Discharge Orders: Discharge Order (Routine); Ordered 09/06/18 Ordered By: Glynn Morelos Discharge Details Anticipated Discharge Date: 09/06/18 Physicians Team Primary Care Provider: Paula Martin Attending Provider: Glynn Morelos Other Providers: Oskar Balderrama Rxs /Orders / Referrals /Forms Prescriptions: New ipratropium-albuterol 0.5 mg-3 mg(2.5 mg base)/3 mL Solution For Nebulization 3 ml NEB Q4HR NEB PRN (Reason: shortness of breath) 30 Days Qty: 90 RF: 11 levofloxacin 750 mg Tablet 750 mg PO Q24H Qty: 6 RF: 0 nicotine 14 mg/24 hr Patch 24 Hour 1 patch Transdermal DAILY Qty: 7 RF: 0 prednisone 20 mg Tablet 20 mg PO BID PRN (Reason: COPD) Qty: 60 RF: 3 budesonide-formoterol [Symbicort] 160-4.5 mcg/actuation Hfa Aerosol Inhaler 1 puff INH BID 30 Days Qty: 1 RF: 11 tiotropium bromide [Spiriva with HandiHaler] 18 mcg capsule, w/inhalation device 1 cap INHALATION DAILY Qty: 30 RF: 11 Continue alprazolam 1 mg Tablet 1 mg PO BID RF: 0 zolpidem 5 mg Tablet 5 mg PO HS RF: 0 tramadol 50 mg Tablet 50 mg PO TID RF: 0 albuterol sulfate [ProAir HFA] 90 mcg/actuation Hfa Aerosol Inhaler 1 puff INHALATION Q4-6H PRN (Reason: Shortness Of Breath) 30 Days RF: 11 Discontinued albuterol sulfate 2.5 mg /3 mL (0.083 %) Solution For Nebulization 2.5 mg INHALATION Q4H PRN (Reason: Shortness Of Breath) RF: 0 fluticasone [Flovent HFA] 44 mcg/actuation Hfa Aerosol Inhaler 1 inh INHALATION Q12H RF: 0 Ambulatory Orders / Order Sets / DME: Nebulizer Adult Kit (1 kit) (Routine) Location: Determined by Patient Ordered By: Glynn Morelos Referrals: Paula Martin MD [Primary Care Provider] - See Instructions (Follow up within 1-2 weeks. Please also obtain referral to see Quality Assistant. call for appointment with ) Discharge Instructions Patient Printed Instructions: Prednisone (By mouth), Nicotine (Into the mouth) , Levofloxacin (By mouth), Ipratropium/Albuterol (By breathing), Tiotropium (By breathing), Budesonide/Formoterol (By breathing) Post Discharge Care Plan Care Plan Goals: Discharge Care Plan Goals for COPD You have been diagnosed with chronic obstructive pulmonary disease (COPD). This is a name given to a group of diseases that limit the flow of air in and out of your lungs. This makes it harder to breathe. With COPD, you are also more likely to get lung infections. COPD includes chronic bronchitis and emphysema. COPD is most often caused by heavy, long-term cigarette smoking. Directions to Meet your Goals: 1. Quit smoking: * If you smoke, quit. It is the best thing you can do for your COPD and your overall health. * Join a stop-smoking program. There are even telephone, text message, and Internet programs to help you quit. * Ask your doctor about medicines or other methods to help you quit. * Ask family members to quit smoking as well. * Don't allow people to smoke in your home, in your car, or when they are around you. 2. Protect yourself from infection: * Wash your hands often. Do your best to keep your hands away from your face. Most germs are spread from your hands to your mouth. * Get a flu shot every year. Also ask your provider about pneumonia vaccines. * Avoid crowds. It's especially important to do this in the winter when more people have colds and flu. * To stay healthy, get enough sleep, exercise regularly, and eat a balanced diet. You should: -Get about 8 hours of sleep every night. -Try to exercise for at least 30 minutes on most days. -Have healthy foods including fruits and vegetables, 100% whole grains, lean meats and fish, and low-fat dairy products. -Try to stay away from foods high in fats and sugar. 3. Take your medicines: * Take your medicines exactly as directed. Don't skip doses. 4. Manage you stress: Stress can make COPD worse. Use this stress management technique: * Find a quiet place and sit or lie in a comfortable position. * Close your eyes and perform breathing exercises for several minutes. 5. Pulmonary rehabilitation: * Pulmonary rehab can help you feel better. These programs include exercise, breathing techniques, information about COPD, counseling, and help for smokers. * Ask your doctor or your local hospital about programs in your area. 6. When to call your doctor: Call doctor immediately if you have any of the following: Shortness of breath, wheezing, or coughing Increased mucus Yellow, green, bloody, or smelly mucus Fever or chills Tightness in your chest that does not go away with rest or medicine An irregular heartbeat or a feeling that your heart is beating very fast Swollen ankles 7. Follow-up: Do Not miss your follow-up appointment. Keep up with all your appointments and yearly check ups Status ED Status: Left Department Discharge Information Discharge Date/Time: 09/06/18 10:36
== END 2018-09-06 10:36 | disposition home or self-care (01) | DRG 189 ==
LOC: NEPE 19:50 → NEDA 23:03 → HIMC 09-03 00:10 → N04 09-04 11:21
PROVIDERS: ADMIT Hospitalist; ATTEND Hospitalist
DX: E87.2 Acidosis; F17.210 Nicotine dependence, cigarettes, uncomplicated; E88.09 Other disorders of plasma-protein metabolism, not elsewhere classified; J44.1 Chronic obstructive pulmonary disease with (acute) exacerbation; Z99.81 Dependence on supplemental oxygen; Z23 Encounter for immunization; Z88.6 Allergy status to analgesic agent; G47.00 Insomnia, unspecified; G92 Toxic encephalopathy; F41.1 Generalized anxiety disorder; G89.4 Chronic pain syndrome; Z88.8 Allergy status to other drugs, medicaments and biological substances; J96.01 Acute respiratory failure with hypoxia; J96.02 Acute respiratory failure with hypercapnia; Z88.5 Allergy status to narcotic agent
CPT/HCPCS: 36600; 71010; 71045; 80048; 80053; 82550; 82805; 82948; 82962; 83605; 83735; 84100; 84484; 85025; 85027; 87040; 87275; 87276; 87641; 87804; 90658; 90686; 90732; 90774; 90784; 93005; 94002; 94003; 94150; 94640; 94656; 94657; 94664; 94665; 94667; 96374; 97162; 99285; C8952; J0456; J0696; J1650; J2060; J2920; J3475; J7030; J7050; J7506; J7512; Q2038